=== PATIENT | male | born 1955 ===

== ENCOUNTER 2023-04-22 16:13 | Outpatient (AMB) | payer OTHER, SELFPAY ==
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
== END 2023-04-22 16:13 | disposition home or self-care (01) ==
LOC: HO.PMC 16:13
PROVIDERS: PCP Internal Medicine; Visit Provider Internal Medicine
DX: M48.062 Spinal stenosis, lumbar region with neurogenic claudication (principal); M47.816 Spondylosis without myelopathy or radiculopathy, lumbar region; M43.16 Spondylolisthesis, lumbar region
CPT/HCPCS: 99441

== ENCOUNTER → 2023-04-22 16:13 | Outpatient (BNVA) | payer OTHER, SELFPAY | PROVIDERS: PCP Internal Medicine; Visit Provider Internal Medicine ==

== ENCOUNTER 2023-12-05 06:11 | Outpatient (REF) | payer OTHER, SELFPAY ==
--- NOTE | ~2023-12-05 | FL_ITS ---
EXAMINATION: XR FLUOROSCOPY WITH IMAGES CLINICAL INFORMATION: Spondylosis without myelopathy. COMPARISON: None available. TECHNIQUE: Fluoroscopy Supervised By: Dr. Luis Enrique Cantu. Fluoroscopy Time: 0.3 minutes. Cumulative Dose: 4.92 mGy. DAP: 0.47425 Gycm2. Images: 2. FINDINGS: Intraoperative fluoroscopy and spot films were performed during a procedure in the OR. Single needle seen just to the right of midline in the lumbar spine, possibly L3. Level is difficult to ascertain because of marked coning of the radiographs. Contrast is seen in the epidural space. Please correlate with Dr. Luis Enrique Cantu's report for complete details. FL/FL guidance in treatment room IMPRESSION: Intraoperative fluoroscopy and spot films were obtained. Please see Dr. Luis Enrique Cantu's report for complete details.
== END 2023-12-05 06:12 | disposition home or self-care (01) ==
LOC: CF 06:11
PROVIDERS: Visit Provider Internal Medicine
DX: M47.26 Other spondylosis with radiculopathy, lumbar region (principal)
CPT/HCPCS: 62323; J3301; Q9967

== ENCOUNTER 2023-12-05 09:45 | Outpatient (AMB) | payer OTHER, SELFPAY ==
--- NOTE | 2023-12-05 09:58 | A.OFFVIS_ITS ---
Vital Signs 12/05/23 10:42 12/05/23 10:43 Height 5 ft 2 in Weight 153 lb BMI 28.0 BP 114/68 118/62 Blood Pressure Location Lt brachial Lt brachial Position Sitting Sitting Respiration 14 16 Pulse 62 66 Pulse Source Pulse Oximeter Pulse Oximeter Pulse Oximetry (%) 97 99 Oxygen Delivery Method Room Air Room Air Comment Pre-Op Post-Op Intake Visit Reasons: interlaminar lumbar LINDA HPI HPI interlaminar lumbar LINDA: Details: Patient presents for scheduled procedure. Denies any recent cough, cold, infection, fever or other significant changes in medical history since last office visit. Office Procedures Joint Injection/Drain Joint Injection/Drain Details: Interlaminar epidural steroid injection, L3-4, left parasaggital After obtaining written consent, pre-procedure blood pressure and heart rate were stable and recorded in the nursing record. The patient was placed in the prone position. The lumbosacral area was widely prepped with chloraprep and draped in sterile fashion. Fluoroscopic guidance was used to identify the desired interlaminar space and for needle placement. Subcutaneous 0.5% lidocaine was used to anesthetize the skin overlying the target. A 20-gauge Mejia needle was advanced to the epidural space using loss of resistance to contrast technique under fluoroscopic AP and contralateral oblique views. There was no evidence of heme or CSF and no paresthesias were elicited with needle placement. Confirmation of epidural needle placement was performed with 1cc of omnipaque 180. Next 3 ml 0.5% lidocaine mixed with 80 mg triamcinilone was administered epidurally with no pain elicited on injection. The needle was removed, skin cleansed and a sterile bandage was applied. The n eedle was then replaced in the L4-5 interlaminar space and advanced to the ventral interlaminar line in the left parasagittal position under contralateral oblique fluoroscopy. Aspiration was then attempted for the interlaminar cyst and 0.5 mL of cloudy fluid was aspirated. The needle was then removed. The patient tolerated the procedure well and no complications were encountered. Following the procedure the patient's vital signs were stable. The patient was discharged home in good condition with post-procedural instructions. Time Out: Immediately prior to the procedure, the following was verbally confirmed that there is a signed consent form and that the correct patient, planned procedure, site and side are consistent with documentation and that necessary equipment and/or blood products are available prior to the start of the case. Complications: none EBL: <2 cc Coding 75618 - Caudal/Lumbar Epidural/Interlaminar with fluoroscopy Procedure code (CPT) selection complete Assessment & Plan Assessment & Plan (1) Lumbar radiculitis: Code(s): M54.16 - Radiculopathy, lumbar region Category: Medical Plan Patient is status post left parasagittal interlaminar L3-4 LINDA. Patient tolerated procedure well and was discharged home in stable condition with discharge instructions. All questions were answered. We will follow-up via telephone or in clinic to assess response to therapy. A follow-up appointment was made during today's visit. Orders: Orders FL guidance in treatment room Today M47.816 - Spondylosis without myelopathy or radiculopathy, lumbar region Coding Level of Care Code Procedure Only Diagnoses Lumbar radiculitis M54.16 CPT Codes Coding - Joint 11: 00952 - Caudal/Lumbar Epidural/Interlaminar with fluoroscopy ([id number])
[2023-12-05 10:42] VITALS: BP 114/68; PULSE 62; RESP 14; O2SAT 97; BMI 28.0
[2023-12-05 10:43] VITALS: BP 118/62; PULSE 66; RESP 16; O2SAT 99
== END 2023-12-05 10:28 | disposition home or self-care (01) ==
LOC: HO.PMCPRC 09:45
PROVIDERS: PCP Internal Medicine; Visit Provider Internal Medicine
DX: M54.16 Radiculopathy, lumbar region (principal)
CPT/HCPCS: 62323

== ENCOUNTER 2024-05-14 08:05 | Outpatient (REF) | payer MEDICARE, OTHER, SELFPAY | END 2024-05-14 08:06 | disposition home or self-care (01) | LOC: CF 08:05 | PROVIDERS: Visit Provider Internal Medicine | DX: M54.16 Radiculopathy, lumbar region (principal) | CPT/HCPCS: 62323; J1100; J2003; J3301; Q9967 ==

== ENCOUNTER 2024-05-14 11:34 | Outpatient (AMB) | payer MEDICARE, OTHER, SELFPAY ==
[2024-05-14 12:15] VITALS: BP 112/65; PULSE 64; O2SAT 98
--- NOTE | 2024-05-14 12:15 | MHC.OFFVIS ---
Vital Signs 05/14/24 12:15 05/14/24 12:45 BP 112/65 110/69 Blood Pressure Location Lt brachial Lt brachial Position Sitting Sitting Pulse 64 61 Pulse Source Pulse Oximeter Pulse Oximeter Pulse Oximetry (%) 98 98 Oxygen Delivery Method Room Air Room Air Intake Visit Reasons: lumbar interlaminar LINDA HPI HPI lumbar interlaminar LINDA: Details: Patient presents for scheduled procedure. Denies any recent cough, cold, infection, fever or other significant changes in medical history since last office visit. Physical Exam Vital Signs: Last Vital Signs Pulse 61 05/14/24 12:45 BP 110/69 05/14/24 12:45 Pulse Ox 98 05/14/24 12:45 Oxygen Delivery Method Room Air 05/14/24 12:45 Office Procedures AMB Joint Injection/Aspiration Joint Injection/Aspiration Details: Interlaminar epidural steroid injection, L3-4, left parasaggital After obtaining written consent, pre-procedure blood pressure and heart rate were stable and recorded in the nursing record. The patient was placed in the prone position. The lumbar area was widely prepped with chloraprep and draped in sterile fashion. Fluoroscopic guidance was used to identify the desired interlaminar space and for needle placement. Subcutaneous 0.5% lidocaine was used to anesthetize the skin overlying the target. A 20-gauge Mejia needle was advanced to the epidural space using loss of resistance to contrast technique under fluoroscopic AP and contralateral oblique views. There was no evidence of heme or CSF and no paresthesias were elicited with needle placement. Confirmation of epidural needle placement was performed with 1cc of omnipaque 180. Next 3 ml 0.5% lidocaine mixed with 80 mg triamcinilone was administered epidurally with no pain elicited on injection. The needle tract tubing was then cleared with 1 ml of 0.5% lidocaine. The needle was removed, skin cleansed and a sterile bandage was applied. The patient tolerated the procedure well and no complications were encountered. Following the procedure the patient's vital signs were stable. The patient was discharged home in good condition with post-procedural instructions. Time Out: Immediately prior to the procedure, the following was verbally confirmed that there is a signed consent form and that the correct patient, planned procedure, site and side are consistent with documentation and that necessary equipment and/or blood products are available prior to the start of the case. Complications: none EBL: <2 cc Coding 08622 - Caudal/Lumbar Epidural/Interlaminar with fluoroscopy Procedure code (CPT) selection complete Assessment & Plan Assessment & Plan (1) Lumbar radiculitis: Code(s): M54.16 - Radiculopathy, lumbar region Category: Medical Plan Patient is status post left parasagittal interlaminar L3-4 LINDA. Patient tolerated procedure well and was discharged home in stable condition with discharge instructions. All questions were answered. We will follow-up via telephone or in clinic to assess response to therapy. A follow-up appointment was made during today's visit. Orders: Orders FL guidance in treatment room 05/14/24 M54.16 - Radiculopathy, lumbar region Coding Level of Care Code Procedure Only Diagnoses Lumbar radiculitis M54.16 CPT Codes Coding - Joint 11: 47868 - Caudal/Lumbar Epidural/Interlaminar with fluoroscopy ([id number])
[2024-05-14 12:45] VITALS: BP 110/69; PULSE 61; O2SAT 98
== END 2024-05-14 13:09 | disposition home or self-care (01) ==
LOC: HO.PMCPRC 11:34
PROVIDERS: PCP Internal Medicine; Visit Provider Internal Medicine
DX: M54.16 Radiculopathy, lumbar region (principal)
CPT/HCPCS: 62323

== ENCOUNTER 2024-08-21 11:15 | Outpatient (AMB) | payer MEDICARE, OTHER, SELFPAY ==
--- NOTE | 2024-08-21 11:15 | A.OFFVIS_ITS ---
Intake Visit Reasons: follow up HPI HPI follow up: Details: The patient is a 69-year-old male presenting with increased severe left leg radiculopathy and cervicalgia. The patient has a notable history of previously diagnosed lumbar spinal stenosis and lumbar spondylolisthesis with chronic low back pain. Post recent travel abroad, the patient experienced severe left leg radiculopathy rendering him unable to ambulate and has resulted in his being wheelchair-bound, leading to short-term disability. The lumbar symptoms have worsened over time, presenting with increased numbness, cramping, and pain. The patient denies any bladder or bowel dysfunction. Cervicalgia, including pain radiating to shoulders and arms, with cramping as a new issue, arises alongside chronicity in bilateral shoulder impingement syndrome, notwithstanding prior surgical intervention. Increasing bilateral shoulder pain has impaired his sleep routine, necessitating adaptation to a supine sleeping position in pursuit of symptom relief. Utilization of new imaging for lumbar and cervical pain interpretation is planned. Pain Description - Onset: Recently increased post-travel. - Quality and Character: Debilitating left leg radiculopathy, severe in nature; neck pain with radiation. - Primary Location: Lumbar region and cervical spine. - Areas of Radiation: Left leg, shoulders, and arms. - Exacerbating Factors: Specific neck movements; ambulation; prolonged sitting. - Relieving Factors: Attempts at adapting sleep position. - Impact: Wheelchair-bound due to severe leg pain; difficulty sleeping. Physical Exam - Omitted due to telephone visit Pain Management - Affect: Significant impact on daily activities and sleep routine. - Analgesia: Severity increase observed post recent events; interest in MRI and potential therapy. - Adverse Effects: Difficulty in habitual sleeping rotation. - Activities of Daily Living: Noted wheelchair-bound state post travel; impact on sleep. - Aberrant Drug Related Behaviors: None reported. Telehealth Telehealth Telehealth Platform: Telephone Location of provider rendering services: practice address Location of patient: address on file Patient Identification confirmed using: Name, : Yes Telehealth method: voice only Patient verbally consented to treatment: Yes Patient verbally consented to billing insurance company: Yes Patient informed of any privacy concerns related to visit: Yes Minutes spent on Phone/Video with Pt.: 13 Assessment & Plan Assessment & Plan (1) Spinal stenosis, lumbar region with neurogenic claudication: Code(s): M48.062 - Spinal stenosis, lumbar region with neurogenic claudication Category: Medical (2) Spondylolisthesis, lumbar region: Code(s): M43.16 - Spondylolisthesis, lumbar region Category: Medical (3) Lumbar radiculitis: Code(s): M54.16 - Radiculopathy, lumbar region Category: Medical (4) Cervical radicular pain: Code(s): M54.12 - Radiculopathy, cervical region Category: Medical (5) Dysfunction of rotator cuff of both shoulders: Code(s): M67.911 - Unspecified disorder of synovium and tendon, right shoulder; M67.912 - Unspecified disorder of synovium and tendon, left shoulder Category: Medical Plan Given the worsening severity of the patient?s symptoms in the lumbar and cervical regions, MRI evaluations are crucial for accurate reevaluation and management. The patient is recommended for surgical evaluation, warranting possibilities of decompression, especially for the exacerbated lumbar condition. Existing nighttime discomfort may benefit from the exploration of alternative pillow supports. Introduction to physical therapy was suggested, albeit potential participation limitations due to severe symptoms exist. Proper follow- up contingent on MRI results will ensure adaptive management based on findings. At this time, I recommend continuing short term leave from work while we undert livia gentle rehabilition via physical, have him undergo MR imaging and return for follow up discussion to assess suitability for surgical or interventional management. Patient was informed and verbally consented to the use of an ambient scribe for clinic note documentation during this visit. Discussion Notes In the patient-provider discussion, MRIs of the lumbar and cervical spine were advocated to reassess worsening symptoms and generate an accurate diagnosis. We conversed about methods of symptom mitigation, including changes in sleep posture and pillow use. Indication for surgical assessment concluded during the discussion based on symptom presentation and history. We prepared to re-evaluate therapy?s viability post-diagnostic imaging results. The patient understood the management discourse and agreed to proceed with outlined evaluations and eventual follow-up for final treatment directives contingent on imaging outcomes. Patient Instructions - Undergo MRI scans of the shoulders, lumbar and cervical spine. - Explore different pillow types for improved neck support. - Attempt to sleep on your back, utilizing supportive pillows. - Follow up after MRI results are available. - Trial of physical therapy while waiting on imaging outcomes. Orders: Orders PT Evaluation and Treatment 08/21/24 M43.16 - Spondylolisthesis, lumbar region, M48.062 - Spinal stenosis, lumbar region with neurogenic claudication, M54.16 - Radiculopathy, lumbar region Coding Level of Care Code Tele Est Pt Level 3 (68885) Diagnoses Spinal stenosis, lumbar region with neurogenic claudication M48.062 Spondylolisthesis, lumbar region M43.16 Lumbar radiculitis M54.16 Cervical radicular pain M54.12 Dysfunction of rotator cuff of both shoulders M67.911; M67.912
--- OUTSIDE RECORDS SUMMARY | 2024-08-21 13:16 | XMS_ITS ---
Author Organization [facility] Address [phone] [facility] [place] [address] Care Team Providers Care Mohel Name Role Phone Manoj, Ejsue Holley MD Primary Care Provider Self-Referred, Patient Unavailable Unavailab Isaak Florian MD, BONNIE Unavailable [phone] Kyle Onofre CLINICAL SOCIOLOGIST Unavailable [phone] Active Problems Problem Noted Date Diagnosed Date Diabetic nephropathy associa yoko with type 2 diabetes mellitus 02/01/2024 Coronary artery disease 01/01/2024 Overview (01/01/2024): by CT. Abdominal actinomycosis 01/01/2024 Degeneration of intervertebral disc of lumbar re gion 01/01/2024 Degenerative lumbar spinal stenosis 01/01/2024 Diabetes mellitus 01/01/2024 Erectile dysfunction of organic origin Essential hypertension 01/01/2024 H/O coronary angiogram 01/01/2024 Hyperlipidemia with target l ow density lipoprotein (LDL) cholesterol less than 70 mg/dL 01/01/2024 Hypogonadism male 01/01/2024 Left lower lobe pulmonary nodule 01/01/2024 Sacrococcygeal disorders, not elsewhere classifi ed 01/01/2024 Nuclear senile cataract 01/01/2024 Proctalgia fugax 01/01/2024 Recurrent major depression 01/01/2024 Seasonal allergies 01/01/2024 Type 2 diabetes mellitus wit hout complication, without long-term current use of insulin 01/01/2024 Vitamin D deficiency 01/01/2024 Prostate cancer 04/29/2023 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 Past Plans No past plan information found. Radiation Treatments * Plan Last Treated On Elapsed Days Fractions Treated Prescribed Fraction Dose Prescribed Total Dose A1_IM125^IMRT Prostate RT Intent Revision 11 11/13/2023 9 5 of 5 800 cGy 4,000 cGy Reference Point Last Treated On Elapsed Days Session Dose Total Dose A1_Prostate 11/13/2023 9 800 cGy 4,000 cGy A_PELVIS 11/13/2023 9 800 cGy 4,000 cGy Resolved Problems Problem Noted Date Diagnosed Date Resolved Date Acute sinusitis 01/01/2024 01/01/2024 Benign prostatic hyperplasia without lower urinary tract symptoms 01/01/2024 01/01/2024 BPH with obstruction/lower u rinary tract symptoms 01/01/2024 01/01/2024 Displaced avulsion fracture of left ilium, subsequent encounter for fracture with delayed healing 01/01/2024 01/01/2024 Elevated PSA, less than 10 ng/ml 01/01/2024 01/01/2024 Microscopic hematuria 01/01/20242023 Myopathy 01/01/2024 01/01/2024 Thoracic vertebral fracture 01/01/2024 01/01/2024 H. pylori infection 11/23/2019 01/01/20 24
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
--- OUTSIDE RECORDS SUMMARY | 2024-08-21 13:16 | XMS_ITS | Clinical Summary ---
Author Organization [facility] lin Address [address] [facility] [place] [address] Care Team Providers Care Counter Installer Name Role Phone Unavailable Primary Care Provider Unavailabl e Social History Tobacco Use Types Packs/Day Years Used Date Smoking Tobacco: Never Assessed Sex and Gender Information Value Date Recorded Sex Assigned at Not on file Legal Sex Male 7:25 PM EDT Gender Identity Not on file Sexual Orientation Not on file Plan of Treatment Health Maintenance Due Date Last Done Comments Colorectal Cancer: COLONOSCO PY Screening every 10 yrs (or Modifier) 1955 Depression: Screening Annual ly using PHQ-2/9 in Adults 18 yrs or above (or HM Modifier)([facility]) 01/05/1972 Hepatitis C Virus Infection in Adolescents and Adults: Screening (or Modifier) ([facility]) 01/05/1972 SDAL Screening Reminder: Martha stock for all adults ([facility]) 01/05/1972 Tobacco Smoking Cessation: i n Adults excluding Women: Behavioral and Pharmacotherapy Interventions ([facility]) 01/05/1972 DTaP/Tdap/Td Vaccines ([facility]) (1 - Tdap) 1973 Lipid Screening: Every 5 yrs for Men aged 35+ (or HM Modifier) ([facility]) 1990 Colorectal Cancer: FLEXIBLE SIGMOIDOSCOPY Screening every 5 yrs 1999 Colorectal Cancer: Fecal Imm unochemical Test (FIT) Annually [facility] 1999 Colorectal Cancer: High-sens itivity gFOBT Screening Annually [facility] 1999 Colorectal Cancer:CT Colonog madelin Screening every 5 yrs 1999 Zoster/Shingles Vaccine Seri es Screening: Adults aged 18+ yrs (or HM Modifiers)([facility]) (1 of 2) 01/05/2004 Pneumococcal Vaccination Scr eening: Patients 65+ yrs of age ([facility]) (1 of 1 - PCV) 2019 Colorectal Cancer Screening 45 -75 Yrs (or HM Modifier) 08/17/2022 Colorectal Cancer: Stool Col oguard Screening every 3 yrs 08/17/2022 08/17/2019 Flu Vaccination: Ages 65+: Y early High Dose Recommended (or Modifier)([facility]) 01/23/2024 COVID-19 Vaccine Screening: Initial Series and Booster Status ([facility]) ( - 2023- season) 2024 RSV Vaccines (1 - 1-dose 75+ series) 2029 Medical Devices Not on file Insurance
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
--- OUTSIDE RECORDS SUMMARY | 2024-08-21 13:16 | XMS_ITS | Clinical Summary ---
Author Organization [facility] Address [phone] [facility] [place] [address] Care Team Providers Care Employment Services Director Name Role Phone ManojEj basilio Kishan GAGNON Primary Care Provider Self-Referred, Patient Unavailable Unavailab Isaak Florian MD, BONNIE Unavailable [phone] Kyle Onofre STACK MATCHER Unavailable [phone] Allergies Active Allergy Reactions Criticality Noted Date Comments Atorvastatin Myalgia 01/01/2024 Itraconazole Anaphylaxis,Hives,Unknown High 03/29/20 23 Lisinopril Cough 01/01/2024 Medications Medication Sig Dispensed Refills Start Date End Date Status metFORMIN (GLUCOPHAGE) 1000 MG tablet Take 1,000 mg by mouth 2 (two) times a day with meals. Active losartan (COZAAR) 50 MG tablet Take 50 mg by mouth daily. Active aspirin 81 MG EC tablet Take 81 mg by mouth daily. Active sildenafiL (VIAGRA) 100 mg tablet Take 100 mg by mouth daily as needed for erectile dysfunction. Active ALPRAZolam (XANAX) 0.5 MG tablet TAKE 1 TABLET BY MOUTH THREE TIMES A DAY FOR 7 DAYS NEEDED FOR ANXIETY AND PANIC ATTACKS 11/07/2023 Active FREESTYLE BHARTI 3 SENSOR Teresa SENSORS DX: DM TYPE 2 E11.9 CHECK SUGARS 11/26/2022 Active CEQUA 0.09 % suspension 11/19/2023 Active EPINEPHrine (EPIPEN) 0.3 mg/0.3 mL auto-injector as directed Injection as needed for 30 days Active eszopiclone (LUNESTA) 3 mg tablet TAKE 1 TABLET BY MOUTH AT BEDTIME 30 DAYS NEEDED INSOMNIA 11/11/2023 Active ketoconazole 2 % cream 1 APPLICATION TOPICALLY 2 TIMES A DAY FOR 2-4 WEEKS AT A TIME. 11/02/2023 Active XDEMVY 0.25 % Drop INSTILL 1 DROP INTO EACH EYE TWICE A DAY FOR 6 WEEKS 11/11/2023 Active MIEBO 100 % Drop 11/05/2023 Active tadalafiL (CIALIS) 5 MG tablet 09/23/2023 Active triamcinolone acetonide 0.025 % cream PLEASE SEE ATTACHED FOR DETAILED DIRECTIONS 11/01/2023 Active FARXIGA 10 mg tablet Take 1 tablet by mouth daily. Active REPATHA SYRINGE 140 mg/mL subcutaneous syringe INJECT 140 MG SUBCUTANEOUS INFUSION EVERY 14 DAYS,X90 DAYS 12/16/2023 Active tamsulosin (FLOMAX) 0.4 mg Cap Take 0.8 mg by mouth. 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 pylori infection 11/23/2019 01/01/20 24 Encounters Date Type Department Care Team Description 05/27/2024 1:00 PM EST - 05/27/2024 11:59 PM EST Hospital Encounter Department of Radiation Oncology [address] [place] [address] Kyle Onofre, GAYLE Discharge Disposition: Home or Self Care 05/27/2024 Orders Only Department of Radiation Oncology [address] [place] [address] Kyle Onofre NP from Last 3 Months Family History Medical History Relation Comments Prostate cancer Father Relation Status Comments Father Social History Tobacco Use Types Packs/Day Years Used Date Smoking Tobacco: Never Smokeless Tobacco: Never Tobacco Cessation:Counseling Given: Not Answered Child or Family Care Answer Date Record [...] your housing situation today? I have sadie logan 08/29/2023 How many times have you move [...] Orientation Straight 03/22/2023 5: 43 PM EDT Last Filed Vital Signs Vital Sign Reading Time Taken Comments Blood Pressure 98/55 10/21/2023 11:23 AM EDT Pulse 72 10/21/2023 11:23 AM EDT Temperature - - Respiratory Rate - - Oxygen Saturation - - Inhaled Oxygen Concentration - - Weight 71.7 kg (158 lb) 10/21/2023 9:35 AM EDT Height 165 cm (5' 4.96 ) 10/21/2023 9:35 AM EDT Body Mass Index 26.32 10/21/2023 9:35 AM EDT Plan of Treatment Upcoming Encounters Date Type Department Care Team ([facility] st Contact Info) Description 10/28/2024 3:00 PM EDT Appointment Department of Radiation Oncology [address] [address] Kyle Onofre, STACK MATCHER [address] [place], [place] [address] [place] [address] [email or web address] Health Maintenance Due Date Last Done Comments CREATININE LEVEL 1954 HEMOGLOBIN A1C 1954 POTASSIUM LEVEL 1954 DEPRESSION SCREENING 1966 HEPATITIS B SCREENING 01/05/1972 HEPATITIS C SCREENING 01/05/1972 LIPID PANEL 01/05/1972 PNEUMOCOCCAL VACCINES (50+ years) (1 of 2 - PCV) 1973 COLOGUARD 1999 COLONOSCOPY 1999 COLORECTAL CANCER SCREENING 1999 FIT TEST 1999 FOBT 1999 SIGMOIDOSCOPY 1999 VIRTUAL COLONOSCOPY 1999 RSV VACCINE (1 - Risk 60-74 years 1-dose series) 2014 ZOSTER VACCINES (2 of 2) 09/05/2021 07/11/2021 BLOOD PRESSURE 12/14/2023 06/14/2023 DIABETIC EYE EXAM 01/01/2024 INFLUENZA VACCINE (#1) 2024 , 05/08/2022, 05/25/2021 COVID-19 VACCINE ( - season) 2024 05/24/2022, 10/06/2021, 03/31/2021, Additional history exists Adult Td,Tdap Booster 10/07/2031 10/06/2021 SMOKING STATUS SCREENING (Once After 26 Yrs) Completed 06/14/2023 HEPATITIS A VACCINES Aged Out No long er eligible based on patient's age to complete this topic HEPATITIS B VACCINES Aged Out No long er eligible based on patient's age to complete this topic HIB VACCINES Aged Out No longer eligi ble based on patient's age to complete this topic MENINGOCOCCAL VACCINES (ACWY) Aged Out No longer eligible based on patient's age to complete this topic Medical Devices Not on file Procedures Procedure Name Priority Date/Time Associated Diagnosis Comments PSA Routine 05/27/2024 1:23 PM EST from Last 3 Months Results * PSA (05/27/2024 1:23 PM EST) Kyle Onofre NP LAB BLOOD ORDERABL ES from Last 3 Months Care Teams Employment Services Director Relationship Specialty Start Date End Date Ej Aranda MD [address] [facility] [address] [place] [address] PCP - General Internal Medicine 08/13/23 Self-Referred, Patient 08/13/23 Isaak Contreras MD, BONNIE [address] [place] [address] [email or web address] Radiation Oncology 08/13/23 Kyle Onofre, STACK MATCHER [address] [place] [address] [email or web address] Nurse Practitioner Radiation Oncology 01/01/24 Additional Source Comments The information contained in this document represents components of the legal health record. It is not the complete legal health record.[facility]
--- OUTSIDE RECORDS SUMMARY | 2024-08-21 13:17 | XMS_ITS | Encounter Summary ---
Author Organization [facility] Address [phone] [facility] [address] [place] [address] Care Team Providers Care Golf Course Equipment Operator Name Role Phone ManojTavonsue Holley MD Primary Care Provider [phone] Self-Referred, Patient Unavailable Unavailab Isaak Florian MD, BONNIE Unavailable [phone] Kyle Onofre DIRECTOR OF STRATEGIC PROGRAMS Unavailable [phone] Encounter Details Date Type Department Care Team (Late st Contact Info) Description 01/01/2024 Documentation Department of Radiation Oncology [address] [address] Heidi Ken, RN [address] [place] [address] [email or web address] Social History Tobacco Use Types Packs/Day Years [...] Upcoming Encounters Date Type Department Care Team ([facility] st Contact Info) Description 10/28/2024 3:00 PM EDT Appointment Department of Radiation Oncology [address] [place] [address] Kyle Onofre, GAYLE [address] [place] [address] [email or web address] documented as of this encounter Visit Diagnoses Not on filedocumented in this encounter Care Teams Golf Course Equipment Operator Relationship Specialty Start Date End Date Ej Aranda MD [address] [facility] [address] [place] [address] PCP - General Internal Medicine 08/13/23 Self-Referred, Patient 08/13/23 Isaak Contreras MD, BONNIE [address] [place] [address] [email or web address] Radiation Oncology 08/13/23 Kyle Onofre NP [address] [place] [address] [email or web address] Nurse Practitioner Radiation Oncology 01/01/24 documented as of this encounter Additional Source Comments The information contained in this document represents components of the legal health record. It is not the complete legal health record.[facility]
--- OUTSIDE RECORDS SUMMARY | 2024-08-21 13:17 | XMS_ITS | Encounter Summary ---
Author Organization [facility] Address [phone] [place] [address] Care Team Providers Care Real Estate Leasing Manager Name Role Phone ManojTavonsue Holley MD Primary Care Provider [phone] Self-Referred, Patient Unavailable Unavailab Isaak Florian MD, BONNIE Unavailable [phone] Kyle Onofre NON EMERGENCY SERVICES AMBULANCE DRIVER Unavailable [phone] Encounter Details Date Type Department Care Team (Late st Contact Info) Description 01/29/2024 Documentation Department of Radiation Oncology [address] [address] Heidi Ken, RN [address] [place] [address] [email or web address] Social History Tobacco Use Types Packs/Day Years [...] Upcoming Encounters Date Type Department Care Team ([facility] st Contact Info) Description 10/28/2024 3:00 PM EDT Appointment Department of Radiation Oncology [address] [place] [address] Kyle Onofre, GAYLE [address] [place] [address] [email or web address] documented as of this encounter Visit Diagnoses Not on filedocumented in this encounter Care Teams Real Estate Leasing Manager Relationship Specialty Start Date End Date Ej Aranda MD [address] [facility] [address] [place] [address] PCP - General Internal Medicine 08/13/23 Self-Referred, Patient 08/13/23 Isaak Contreras MD, BONNIE [address] [place] [address] [email or web address] Radiation Oncology 08/13/23 Kyle Onofre NP [address] [place] [address] [email or web address] Nurse Practitioner Radiation Oncology 01/01/24 documented as of this encounter Additional Source Comments The information contained in this document represents components of the legal health record. It is not the complete legal health record.[facility]
--- OUTSIDE RECORDS SUMMARY | 2024-08-21 13:17 | XMS_ITS | Encounter Summary ---
Author Organization [facility] Address [phone] Critical access [place] [address] Care Team Providers Care Hydraulic Auto Jack Mechanic Name Role Phone ManojTavonsue Holley MD Primary Care Provider [phone] Self-Referred, Patient Unavailable Unavailab Isaak Florian MD, BONNIE Unavailable [phone] Kyle Onofre ACCOUNTING LECTURER Unavailable [phone] Encounter Details Date Type Department Care Team (Late st Contact Info) Description 11/06/2023 Documentation Department of Radiation Oncology [address] [address] Heidi Ken, RN [address] [place] [address] [email or web address] Social History Tobacco Use Types Packs/Day Years [...] PM EDT documented as of this encounter Progress Notes * Heidi Ken RN - 11/06/2023 11:59 PM EDT Participant, Kamron Haley, was consented to trial [facility] 22-687 on 10/23/2023. The research was fully explained to the participant and was given time to read and review the consent form. The participant acknowledged full comprehension of the risks and benefits of the study. Theparticipant had the opportunity to ask questions, and all his questions were answered. The participant was given a copy of the signed consent form. All study related procedures were performed after th e participant signed the consent form. 22-687 - Daily Adaptive Stereotactic Body Radiation Therapy for Prostate Cancer with Urethral Sparing: A Prospective Trial Using an Individualized Approach to Reduce Urinary Toxicity (ARTIA-Prostate) AE's possibly, probably, or definitely related to SBRT to prostate will be followed with particularinterest related to AE's listed below. Adverse Events needed: Baseline, 1X during RT (ideally after 3rd, 4th or 5th fraction), 6 wks post tx(+/- 2 wks) 90 days post tx(+/- 2 wks) 6, 12, 18, 24, 36, 48, 60 month post treatment (-/- 4 wks) GI AE's: Toxicity Grade Attribution Start Stop Expected Comments NCS Abdominal pain 0 Bowel Obstruction 0 Colitis 0 Constipation 0 Diarrhea 0 Fecal Incontinence 0 Nausea 0 Pelvic Pain 0 Proctitis 0 Rectal Hemorrhage 0 Rectal Pain 0 Vomiting 0 AE's Toxicity Grade Attribution Start Stop Expected Comments NCS Bladder Spasm 0 Cystitis 0 Hematuria 0 Urinary Frequency 2 Baseline on flomax 0.8mg and cialis 5mg Urinary incontinence 0 Urinary Retention 0 Urinary Tract Obstruction 1 Baseline Urinary tract pain 0 Urinary Urgency 1 Baseline Heidi THOMPSON, RN Isaak Contreras MD documented in this encounter Plan of Treatment Upcoming Encounters Date Type Department Care Team (Late st Contact Info) Description 10/28/2024 3:00 PM EDT Appointment Department of Radiation Oncology [address] [place] [address] Kyle Onofre, ACCOUNTING LECTURER [address] [place] [address] [email or web address] documented as of this encounter Visit Diagnoses Not on filedocumented in this encounter Care Teams Hydraulic Auto Jack Mechanic Relationship Specialty Start Date End Date Ej Aranda MD [address] [facility] [address] [place] [address] PCP - General Internal Medicine 08/13/23 Self-Referred, Patient 08/13/23 Isaak Contreras MD, BONNIE [address] [place] [address] [email or web address] Radiation Oncology 08/13/23 Kyle Onofre NP [address] [place] [address] [email or web address] Nurse Practitioner Radiation Oncology 01/01/24 documented as of this encounter Additional Source Comments The information contained in this document represents components of the legal health record. It is not the complete legal health record.[facility]
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
--- OUTSIDE RECORDS SUMMARY | 2024-08-21 13:17 | XMS_ITS | Clinical Summary ---
Author Organization [facility] Address [address] [place] [address] Care Team Providers Care Qa Automation Developer Name Role Phone Unknown, Primary Care Provider Unavailabl e Social History Tobacco Use Types Packs/Day Years Used Date Smoking Tobacco: Never Assessed Sex and Gender Information Value Date Recorded Sex Assigned at Not on file Gender Identity Not on file Sexual Orientation Not on file Job Start Date Occupation Industry Not on file Not on file Not on file Plan of Treatment Health Maintenance Due Date Last Done Comments Hepatitis C Screening 1954 COVID-19 Vaccine (#1) 1954 Depression Screening 1966 Preventative Health Evaluation 01/05/1972 DTap / Tdap / Td (1 - Tdap) 1973 Colon Cancer Screening (Colonoscopy) 1999 Shingrix-Zoster Vaccine (1 of 2) 01/05/2004 Fall Risk Assessment 2019 Pneumococcal Vaccine (1 of 1 - PCV) 2019 Influenza Vaccine (#1) 2024 RSV Adult > 60+ Yrs or Pregn ant (1 - 1-dose 75+ series) 2029 Hepatitis B Vaccines Aged Out No long er eligible based on patient's age to complete this topic RSV Ped < 20 months Aged Out No longe r eligible based on patient's age to complete this topic Care Teams Qa Automation Developer Relationship Specialty Start Date End Date Unknown, PCP - General 06/11/23
== END 2024-08-21 11:16 | disposition home or self-care (01) ==
LOC: HO.PMC 11:15
PROVIDERS: PCP Internal Medicine; Visit Provider Internal Medicine
DX: M48.062 Spinal stenosis, lumbar region with neurogenic claudication (principal); M43.16 Spondylolisthesis, lumbar region; M54.16 Radiculopathy, lumbar region; M54.12 Radiculopathy, cervical region; M67.911 Unspecified disorder of synovium and tendon, right shoulder; M67.912 Unspecified disorder of synovium and tendon, left shoulder
CPT/HCPCS: 99213

== ENCOUNTER 2025-02-04 09:46 | Outpatient (REF) | payer MEDICARE, OTHER, SELFPAY ==
--- OUTSIDE RECORDS SUMMARY | 2025-02-03 23:59 | XMS_ITS | Continuity of Care Document ---
Author Organization [facility] Address [address] [place] [address]- Care Team Providers Care Senior Web Analyst Name Role Phone Manoj GAGNON, Ej W Primary Care Physician Encounter [facility] Date(s): 01/04/25 - 02/03/25 [facility] [address] [place] [id number] Encounter Type: Triage Allergies, Adverse Reactions, Alerts Substance Criticality Severity Reaction Reaction Severity Status codeine 1 Active Sporanox anaphylaxis Active 1Generally feels unwell, mildly lightheaded. He is uncertain about other opioids Immunizations Given and Recorded Vaccine Date Status Refusal Reason influenza virus vaccine, inactivated 05/10/23 Cisco rded influenza virus vaccine, inactivated 05/08/22 Cisco rded influenza virus vaccine, inactivated 05/25/21 Cisco rded [id number] 12y+ bivalent booster vax 05/24/22 Recorded tetanus-diphtheria toxoids (Td) 10/06/21 Recorded SARS-CoV-2 mRNA (jpsmtfu-cwbz-yrsmu) vax 10/06/21 Recorded zoster vaccine, inactivated 07/11/21 Recorded SARS-CoV-2 (COVID-19) mRNA BNT-162b2 vac 03/31/21 Recorded SARS-CoV-2 (COVID-19) mRNA BNT-162b2 vac 07/11/20 Recorded SARS-CoV-2 (COVID-19) mRNA BNT-162b2 vac 06/20/20 Recorded Meningococcal Conjugate Vaccine 05/20/17 Given Medications acetaminophen-HYDROcodone 325 mg-5 mg oral tablet 1 tablet, By Mouth, Every 12 hours, PRN for severe pain, for 14 days, DO NOT TAKE MORE THAN TWICE ADAY. WATCH OUT FOR DROWSINESS, CONFUSION, SLEEPINESS. DO NOT DRIVE AFTER TAKING THE MEDICATION. IN CASE OF ANY SIDE EFFECTS NOTIFY YOUR PCP., # 28 tablet, 0 Refills, Acute 02/16/25 8:14:00 PM EDT, 02/02/25 8:14:00 PM EDT, Tablet, [facility]/pharmacy #[id number], Partial fill upon patient request if the prescription is for a schedule II opioid drug., 1 tablet By Mouth Every 12 hours,x14 days,PRN:for severe pain,Instr:DO NOT TAKE MORE THAN TWICE A DAY. WATCH OUT FOR DROWSINESS, CONFUSION, SLEEPINESS. DO NOT DRIVE AFTER TAKING THE MEDICATION. IN CASE OF ANY SIDE EFFECTS NOTIFY YOUR PCP., 162.52, cm, 11/12/24 11:59:00 EDT, Height, 78.7, kg, 10/14/24 7:30:00 EDT, Dry Weight Start Date: 02/02/25 Stop Date: 02/16/25 Status: Ordered Quantity: 28.0 Unit: tablet Repeat number: 1 aspirin 81 mg oral capsule 1 capsule = 81 mg, By Mouth, Daily, do not exceed 48 capsules in 24 hours, # 14 capsule, 0 Refills,Maintenance, 10/17/24 9:00:00 AM EDT, Capsule, [facility], Partial fill upon patient request if the prescription is for a schedule II opioid drug., 162.52, cm, 10/14/24 7:30:00 EDT, Height, 78.7, kg, 10/14/24 7:30:00 EDT, Dry Weight Start Date: 10/17/24 Stop Date: 10/31/24 Status: Ordered Quantity: 14.0 Unit: capsule Repeat number: 1 Basaglar KwikPen 100 units/mL subcutaneous solution = 10 units, Subcutaneous Injection, Daily at bedtime, # 15 mL, 5 Refills, Maintenance, 04/17/24 12:19:00 PM EDT, Solution, [facility]/pharmacy #[id number], Partial fill upon patient request if the prescription isfor a schedule II opioid drug., 163, cm, 04/02/24 12:42:00 EDT, Height, 75.9, kg, 02/02/24 18:12:00EDT, Dry Weight Start Date: 04/17/24 Stop Date: 10/14/24 Status: Ordered Quantity: 15.0 Unit: mL Repeat number: 6 Cequa 0.09% ophthalmic solution 1 drops, Eyes, Both, Every 12 hours, 0 Refills, Maintenance, 04/02/24 12:50:00 PM EDT, Partial fillupon patient request if the prescription is for a schedule II opioid drug. Start Date: 04/02/24 Status: Ordered Repeat number: 1 Colace sodium 100 mg oral capsule 100 mg, 1, capsule, By Mouth, 2 times a day, # 20 capsule, Refills 0, Tot. 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 Refills 1, Maintenance, Dx: Uncontrolled type 2 diabetes. ICD-10: 11.65, Z79. 4 You can monitor blood sugars 3 times a day that is before breakfast, lunch, dinner., 05/25/24 11:14:00 AM EST, Supply, 163, cm, 04/02/24 12:42:00 EDT, Height, 75.9, kg, 02/02/24 18:12:00 EDT, Dry Weight Start Date: 05/25/24 Status: Ordered Quantity: 1.0 Unit: each Repeat number: 2 DEXCOM G7 SENSORS DEXCOM G7 SENSORS, See Instructions, # 9 each, Refills 3, Tot. Refills 3, Maintenance, Dx: Uncontrolled type 2 diabetes. ICD-10: 11.65, Z79. 4 You can monitor blood sugars 3 times a day that is before breakfast, lunch, dinner. 90 DAYS SCRIPT. 9 BOXES, 07/13/24 9:11:00 AM EST, Supply, 163, cm, 07/09/24 16:52:00 EST, Height, 75.9, kg, 02/02/24 18:12:00 EDT, Dry Weight Start Date: 07/13/24 Status: Ordered Quantity: 9.0 Unit: each Repeat number: 4 EpiPen 2-Job 0.3 mg injectable kit = 0.3 mg, Intramuscular, Once, # 2 each, 1 Refills, Soft Stop, 11/21/24 4:04:00 PM EDT, [facility]/pharmacy#[id number], Partial fill upon patient request if the prescription is for a schedule II opioid drug., 162.52, cm, 11/12/24 11:59:00 EDT, Height, 78.7, kg, 10/14/24 7:30:00 EDT, Dry Weight Start Date: 11/21/24 Status: Ordered Quantity: 2.0 Unit: each Repeat number: 2 Farxiga 10 mg oral tablet 1 tablet = 10 mg, By Mouth, Daily, # 90 tablet, 3 Refills, Maintenance, 09/04/24 6:42:00 AM EDT, Tablet, [facility]/pharmacy #[id number], Partial fill upon patient request if the prescription is for a schedule II opioid drug., 163, cm, 09/03/24 13:08:00 EDT, Height, 75.9, kg, 02/02/24 18:12:00 EDT, Dry Weight Start Date: 09/04/24 Stop Date: 08/30/25 Status: Ordered Quantity: 90.0 Unit: tablet Repeat number: 4 fluticasone 50 mcg/inh nasal spray See Instructions, USE 2 SPRAYS NARES, BOTH 2 TIMES A DAY,X30 DAYS NEEDED NASAL CONGESTION AND POST NASAL DRIPPING, # 16 mL, 1 Refills, Maintenance, 12/21/24 3:04:00 PM EDT, [id number], 30, USE2 SPRAYS NARES, BOTH 2 TIMES A DAY,X30 DAYS NEEDED NASAL CONGESTION AND POST NASAL DRIPPING, 162.52, cm, 11/12/24 11:59:00 EDT, Height, 78.7, kg, 10/14/24 7:30:00 EDT, Dry Weight Start Date: 12/21/24 Status: Ordered Quantity: 16.0 Unit: mL Repeat number: 1 Insulin Lispro KwikPen 100 units/mL injectable solution = 5 units, Subcutaneous Infusion, 3 times a day before meals, <150-no units 151-200-2 units 201-250-4 units 251-300-6 units 301-350-8 units 351-400-10 units >400 - Call PCP. 15 min before or immediately after meals., # 15 mL, 5 Refills, Maintenance, 05/01/24 12:47:00 PM EST, [facility]/pharmacy #[id number], Partial fill upon patient request if the prescription is for a schedule II opioid drug., 163, cm, 04/02/24 12:42:00 EDT, Height, 75.9, kg, 02/02/24 18:12:00 EDT, Dry Weight Start Date: 05/01/24 Stop Date: 10/28/24 Status: Ordered Quantity: 15.0 Unit: mL Repeat number: 6 ketoconazole 2% topical cream 1 application, Topically, 2 times a day, Apply for 2-4 weeks at a time., # 60 Gm, 2 Refills, Maintenance, 11/02/23 10:56:00 AM EDT, Cream, [facility]/pharmacy #[id number], Partial fill upon patient request if the prescription is for a schedule II opioid drug., 1 application Topically 2 times a day,x28 days,Instr:Apply for 2-4 weeks at a time., 163, cm, 08/02/23 14:02:00 EST, Height, 72.3, kg, 08/02/23 14:02:00EST, Dry Weight Start Date: 11/02/23 Stop Date: 01/25/24 Status: Ordered Quantity: 60.0 Unit: g Repeat number: 3 lidocaine 5% topical film 1 patch, Topically, Daily, PRN Pain , Mild, remove after 12 hours, # 13 each, 0 Refills, Maintenance, 01/10/22 9:19:00 AM EDT, Film, Partial fill upon patient request if the prescription is for a schedule II opioid drug. Start Date: 01/10/22 Status: Ordered Quantity: 13.0 Unit: each Repeat number: 1 losartan 50 mg oral tablet 1 tablet, By Mouth, Daily, # 90 tablet, 1 Refills, Maintenance, 01/04/25 9:20:00 AM EDT, [id number], 162.52, cm, 11/12/24 11:59:00 EDT, Height, 78.7, kg, 10/14/24 7:30:00 EDT, Dry Weight Start Date: 01/04/25 Status: Ordered Quantity: 90.0 Unit: tablet Repeat number: 1 metFORMIN 1000 mg oral tablet See Instructions, TAKE 1 TABLET DAILY AT SUPPER, # 90 tablet, 1 Refills, Maintenance, 11/02/23 7:10:00 AM EDT, [facility], 163, cm, 08/02/23 14:02:00 EST, Height, 72.3, kg, 08/02/23 14:02:00 EST, Dry Weight Start Date: 11/02/23 Status: Ordered Quantity: 90.0 Unit: tablet Repeat number: 1 Mounjaro 10 mg/0.5 mL subcutaneous solution = 10 mg, Subcutaneous Injection, Every week, rotate injection sites, # 4 each, 11 Refills, Maintenance, 09/24/24 7:18:00 AM EDT, Solution, [facility]/pharmacy #[id number], Partial fill upon patient request if the prescription is for a schedule II opioid drug., 163, cm, 09/14/24 8:47:00 EDT, Height, 75.9, kg, 02/02/24 18:12:00 EDT, Dry Weight Start Date: 09/24/24 Stop Date: 09/19/25 Status: Ordered Quantity: 4.0 Unit: each Repeat number: 12 nitroglycerin 0.4 mg sublingual tablet 1 tablet = 0.4 mg, Sublingual, Every 5 minutes, PRN for chest pain, # 100 tablet, 3 Refills, Maintenance, 02/06/24 1:46:00 PM EDT, Tablet, [facility]/pharmacy #[id number], Partial fill upon patient request if the prescription is for a schedule II opioid drug., 163, cm, 02/06/24 13:05:00 EDT, Height, 75.9, kg, 02/02/24 18:12:00 EDT, Dry Weight Start Date: 02/06/24 Stop Date: 06/05/24 Status: Ordered Quantity: 100.0 Unit: tablet Repeat number: 4 Indications: Atherosclerotic heart disease of [place] coronary artery without angina pectoris; Pataday Once Daily Relief 0.2% ophthalmic solution 1 drops, Daily, 0 Refills, Maintenance, 11/30/22 12:20:00 PM EDT, Partial fill upon patient request if the prescription is for a schedule II opioid drug. Start Date: 11/30/22 Status: Ordered Repeat number: 1 Repatha SureClick 140 mg/mL subcutaneous solution See Instructions, DIRECTED EVERY 14 DAYS SUBCUTANEOUSLY, # 6 Unknown, 4 Refills, Maintenance, 08/31/24 7:25:00 AM EDT, [id number], 163, cm, 07/09/24 16:52:00 EST, Height, 75.9, kg, 02/02/24 18:12:00 EDT, Dry Weight Start Date: 08/31/24 Status: Ordered Quantity: 6.0 Unit: Unknown Repeat number: 1 silver sulfADIAZINE 1% topical cream 1 application, Topically, 2 times a day, To be applied as needed for quiroz., # 50 Gm, 5 Refills, Maintenance, 12/10/23 8:06:00 PM EDT, Cream, [facility]/pharmacy #[id number], Partial fill upon patient request if the prescription is for a schedule II opioid drug., 1 application Topically 2 times a day,x14 days,Instr:To be applied as needed for quiroz., 163, cm, 08/02/23 14:02:00 EST, Height, 72.3, kg, 08/02/23 14:02:00 EST, Dry Weight Start Date: 12/10/23 Stop Date: 03/03/24 Status: Ordered Quantity: 50.0 Unit: g Repeat number: 6 Stjennifer Sterile Lubricant ophthalmic ointment 1 application, Eyes, Both, Daily at bedtime, PRN for dry eyes, # 3.5 Gm, 0 Refills, Maintenance, 04/02/24 12:50:00 PM EDT, Ointment, Partial fill upon patient request if the prescription is for a schedule II opioid drug. Start Date: 04/02/24 Status: Ordered Quantity: 3.5 Unit: g Repeat number: 1 tamsulosin 0.4 mg oral capsule 2, capsule, By Mouth, Daily at bedtime, X90 DAYS., # 180 capsule, Refills 1, Maintenance, 10/30/24 6:43:00 AM EDT, Route to Pharmacy Electronically, [id number], 162.52, cm, 10/14/24 7:30:00 EDT, Height, 78.7, kg, 10/14/24 7:30:00 EDT, Dry Weight Start Date: 10/30/24 Status: Ordered Quantity: 180.0 Unit: capsule Repeat number: 1 tiZANidine 2 mg oral tablet 2 mg, 1, tablet, By Mouth, 3 times a day, PRN, # 90 tablet, Refills 1, Tot. Refills 1, Maintenance,Severe pain, stiffness of the hip joint and the low back, 02/02/25 8:05:00 PM EDT, Route to PharmacyElectronically, [facility]/pharmacy #[id number], Partial fill upon patient request if the prescription is for a schedule II opioid drug., 162.52, cm, 11/12/24 11:59:00 EDT, Height, 78.7, kg, 10/14/24 7:30:00 EDT,Dry Weight Start Date: 02/02/25 Stop Date: 04/03/25 Status: Ordered Quantity: 90.0 Unit: tablet Repeat number: 2 tiZANidine 2 mg oral tablet 2 mg, 1, tablet, By Mouth, Every 8 hours, PRN, # 15 tablet, Refills 0, Tot. Refills 0, Maintenance,severe pain with spasms, 10/20/24 9:48:00 AM EDT, Route to Pharmacy Electronically, [facility]/pharmacy #[id number], Partial fill upon patient request if the prescription is for a schedule II opioid drug., 162.52,cm, 10/14/24 7:30:00 EDT, Height, 78.7, kg, 10/14/24 7:30:00 EDT, Dry Weight Start Date: 10/20/24 Stop Date: 10/25/24 Status: Ordered Quantity: 15.0 Unit: tablet Repeat number: 1 Ventolin HFA 108 mcg/inh inhalation aerosol with adapter 1-2 inhalation, Inhalation, Every 6 hours, PRN as needed for shortness of breath or wheezing, # 6.7Gm, 1 Refills, Maintenance, 09/03/24 1:44:00 PM EDT, Aerosol, [id number], Partial fill upon patient request if the prescription is for a schedule II opioid drug., 163, cm, 09/03/24 13:08:00 EDT, Height, 75.9, kg, 02/02/24 18:12:00 EDT, Dry Weight Start Date: 09/03/24 Stop Date: 11/02/24 Status: Ordered Quantity: 6.7 Unit: g Repeat number: 2 Problem List Condition Confirmation Course Effective Dates Status Health Status Informant Adenocarcinoma of prostate S/P prostate SBRT without androgen deprivation therapy (11/13/2023 at [facility]) Confirmed Active Adjustment disorder with anxious mood Confirmed Active 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 CAD in [place] artery 1 Confirmed Active Advice or immunization for travel Confirmed Active DDD (degenerative disc disease), lumbar Confirmed Active Thoracic vertebral fracture Confirmed Active Hypercholesteremia Confirmed Active Baastrup's syndrome Confirmed 09/01/07 Active Facial skin lesion, right bahai, hyperkeratotic, mildly pedunculated 2 Confirmed 07/09/24 Active Left lumbar radiculopathy Confirmed Active Hypogonadism male Confirmed Active Left lower lobe pulmonary nodule Confirmed Active Proctalgia fugax Confirmed Active Pituitary macroadenoma Confirmed Active Recurrent major depression Confirmed Active Diabetic nephropathy associated with type 2 diabetes mellitus Confirmed Active Seasonal allergies Confirmed Active Erectile dysfunction of organic origin Confirmed Active Dry eye syndrome, bilateral Confirmed Active Low testosterone level in male Confirmed 07/18/24 Active Type 2 diabetes mellitus Confirmed 1999 Active Vitamin D deficiency Confirmed Active 1by CT. 2Advised to see dermatology. Social History Social History Type Response Smoking Status Former smoker, quit more than 30 days ago; Tobacco use times per day: 2 cigs a day.; Started at age: 20; Stopped at age: 52; entered on: 11/30/22 Sex Sex Representation Male (finding) Patient Care team information Care Team Personnel Name: Yanira Rader MA Position: [facility] Onco RN Member Role: Primary Care Nurse Name: Nanci Mulligan RN Position: [facility] OB RN Member Role: Primary Care Nurse Name: Camille Enciso RN Position: [facility] RN Member Role: Primary Care Nurse Name: Ej Aranda MD Position: [facility] Physician - Primary Care Member Role: PCP Address: [address] [place] [address] [place], [place] [address] Telecom: Care Team Related Persons Name: JOSUE CANTU Name: MARINA CANTU Name: TOMY CANTU Insurance Providers Guarantor name: SIIDRO CANTU Health Plan Information #: 1 Payer: MEDICARE B Payer Identifier: Member Number: [id number] Group Number: Subscriber Identifier: [id number] Relationship to Subscriber: self Coverage Type: NA Coverage Verification Date: NA Telecom: NA Address: Health Plan Information #: 2 Payer: [facility] [employer] Payer Identifier: Member Number: [id number] Group Number: [id number] Subscriber Identifier: [id number] Relationship to Subscriber: self Coverage Type: Commercial Indemnity Coverage Verification Date: Telecom: Address:
--- NOTE | ~2025-02-04 | FL_ITS ---
EXAMINATION: FL GUIDANCE ONLY HISTORY: M25.559 - Pain in unspecified hip COMPARISON: None available. TECHNIQUE: Fluoroscopy time: 0.1 minute. Cumulative Dose: 1.41 mGy. DAP: 0.142 mGym2 Images: 2. FINDINGS: Fluoroscopic spot films of the left hip demonstrate a needle in place and contrast material in the joint space. FL/FL guidance in treatment room IMPRESSION: Fluoroscopy during procedure. Please see procedure report for additional information. Electronically signed by: Raji Roman MD 02/04/2025 03:47 PM EDT
--- OUTSIDE RECORDS SUMMARY | 2025-02-04 10:28 | XMS_ITS | Clinical Summary ---
Author Organization [facility] [address] [facility] Address [address] [facility] [place] [address] Care Team Providers Care Wilton Weaver Name Role Phone Unavailable Primary Care Provider [...] Adults 18 yrs or above (or HM Modifier)([facility]) 01/05/1972 Hepatitis C Virus Infection in Adolescents and Adults: Screening (or Modifier) ([facility]) 01/05/1972 [facility] Screening Reminder: Martha stock for all adults ([facility]) 01/05/1972 Tobacco Smoking Cessation: i n Adults excluding Women: Behavioral and Pharmacotherapy Interventions ([facility]) 01/05/1972 DTaP/Tdap/Td Vaccines ([facility]) (1 - Tdap) 1973 Colorectal Cancer: FLEXIBLE SIGMOIDOSCOPY Screening every 5 yrs 1999 Colorectal Cancer: Fecal Imm unochemical Test (FIT) Annually [facility] 1999 Colorectal Cancer: High-sens itivity gFOBT Screening Annually [facility] 1999 Colorectal Cancer:CT Colonog madelin Screening every 5 yrs 1999 Pneumococcal Vaccination Scr eening: Patients 50+ yrs of age ([facility]) (1 of 1 - PCV) 01/05/2004 Zoster/Shingles Vaccine Seri es Screening: Adults aged 18+ yrs (or HM Modifiers)([facility] ) (1 of 2) 01/05/2004 Colorectal Cancer Screening 45 -75 Yrs (or HM Modifier) 08/17/2022 Colorectal Cancer: Stool Col oguard Screening every 3 yrs 08/17/2022 08/17/2019 COVID-19 Vaccine Screening: Initial Series and Booster Status ([facility]) (2023- season) 2024 Flu Vaccination: Ages 65+: Y early High Dose Recommended (or Modifier)([facility]) 01/22/2025 RSV Vaccines (1 - 1-dose 75+ series) 2029 Medical Devices Not on file Insurance [facility]
--- OUTSIDE RECORDS SUMMARY | 2025-02-04 10:28 | XMS_ITS | Clinical Summary ---
Author Organization [email or web address] [facility] Address [address] [place] [address] Care Team Providers Care Caustic Room Operator Name Role Phone Unknown, Primary Care Provider [...] 1 - PCV) 2019 Influenza Vaccine (#1) 2025 RSV Adult > 60+ Yrs or Pregn ant (1 - 1-dose 75+ series) 2029 Hepatitis B Vaccines Aged Out No long er eligible based on patient's age to complete this topic RSV Ped < 20 months Aged Out No longe r eligible based on patient's age to complete this topic Care Teams Caustic Room Operator Relationship Specialty Start Date End Date Unknown, PCP - General 06/11/23
--- OUTSIDE RECORDS SUMMARY | 2025-02-04 10:28 | XMS_ITS ---
Author Name [facility] Organization Unknown History of Medication Use Medication Directions Dispensed Refills Start Date End Date Stat us Cequa 0.09 % Solution Administer 1 drop to both eyes 2 times a day. 12/09/2024 active prednisoLONE acetate (PRED FORTE) 1 % ophthalmic suspension INSTILL 1 DROP INTO BOTH EYES THREE TIMES A DAY USE FOR 2 WEEKS THEN STOP. 12/09/2024 active Miebo 1.338 GM/ML Solution INSTILL 1 DROP INTO BOTH EYES 3 TIMES A DAY 12/01/2024 active EPINEPHrine 0.3 mg/0.3 mL IJ auto-injection INJECT 0.3 MG INTRAMUSCULARLY ONCE 11/21/2024 active ipratropium (ATROVENT) 0.03 % nasal spray 11/07/2024 active meloxicam (MOBIC) 15 MG tablet TAKE 0.5-1 TABLET BY MOUTH DAILY,X90 DAYS NEEDED FOR SEVERE PAIN 10/30/2024 active tamsulosin (FLOMAX) 0.4 MG capsule TAKE 2 CAPSULES BY MOUTH DAILY AT BEDTIME,X90 DAYS 10/30/2024 active Admelog SoloStar 100 UNIT/ML prefilled pen injection Please see attached for detailed directions 10/28/2024 active insulin glargine, BASAGLAR KWIKPEN, 100 UNIT/ML prefilled pen injection INJECT 10 UNITS SUBCUTANEOUSLY DAILY AT BEDTIME 10/18/2024 active HYDROmorphone (DILAUDID) 4 MG tablet Take 4 mg by mouth 4 times daily (every 6 hours) as needed. for pain 10/14/2024 active Continuous Glucose Sensor (Dexcom G7 Sensor) [facility] [place]-10: 11.65, Z79. 4 MONITOR BLOOD SUGARS 3X/ DAY BEFORE BREAKFAST, LUNCH, DINNER 09/30/2024 active albuterol (PROVENTIL HFA; VENTOLIN HFA) 108 (90 Base) MCG/ACT inhaler USE 1-2 PUFFS BY MOUTH EVERY 6 HOURS,X30 DAYS NEEDED FOR SHORTNESS OF BREATH OR WHEEZING 09/03/2024 active Repatha 140 MG/ML injection INJECT 140 MG SUBCUTANEOUS INFUSION EVERY 14 DAYS,X90 DAYS 12/16/2023 active aspirin enteric coated 81 MG EC tablet Take 81 mg by mouth. acti ve Farxiga 10 MG tablet Take 10 mg by mouth. acti ve Lifitegrast (Xiidra) 5 % Solution INSTILL 1 DROP INTO BOTH EYES EVERY 12 HOURS active LORazepam (ATIVAN) 0.5 MG tablet TAKE 1 TABLET BY MOUTH 2 TIMES A DAY FOR 30 DAYS NEEDED FOR ANXIETY active losartan (COZAAR) 25 MG tablet active losartan (COZAAR) 50 MG tablet Take 50 mg by mouth. ac tive metFORMIN (GLUCOPHAGE-XR) 500 MG 24 hr tablet active metFORMIN (GLUCOPHAGE) 1000 MG tablet Take 1,000 mg by mouth 2 (two) times a day with meals. active Mounjaro 10 MG/0.5ML pen-injector [id number] MG SUBCUTANEOUS INJECTION EVERY WEEK,X30 DAYS,INSTR:ROTATE INJECTION SITES active Repatha SureClick 140 MG/ML auto-injector DIRECTED EVERY 14 DAYS SUBCUTANEOUS 90 DAYS active rosuvastatin (CRESTOR) 10 MG tablet active tirzepatide (Mounjaro) 2.5 mg/0.5 mL pen-injector INJECT 2.5 MG SUBCUTANEOUSLY ONCE WEEKLY active tiZANidine (ZANAFLEX) 2 MG tablet Take 2 mg by mouth nightly. active Problems Problem Status Onset Date Problem Type Date of Resoluti on Source Non-seasonal allergic rhinitis, unspecified trigger [facility] V[facility] dysfunction active EncounterDiagnosisAct [facility] Allergic conjunctivitis, bilateral active EncounterDiagnosisAct [facility] Encounters Encounter Type Encounter Reason Primary Diagnosis Location Date Ambulatory Allergy Testing Allergy Testing [facility] 12/16/2024 Care Team Organization Name Specialty Phone Email Start Date End Da [facility] 12/16/2024 [place] [place] 12/16/2024 01/14/2025 [facility] 11/27/2024
--- OUTSIDE RECORDS SUMMARY | 2025-02-04 10:28 | XMS_ITS | Clinical Summary ---
Author Organization [facility] Address [address] [place] [address] Phone Care Team Providers Care Bilingual Loan Processor Name Role Phone ManojEj basilio Kishan GAGNON Primary Care Provider Self-Referred, Patient Unavailable Unavailab Isaak Florian MD, BONNIE Unavailable [phone] Kyle Onofre SENIOR ACCOUNTANT CPA Unavailable [phone] Allergies Active Allergy Reactions Criticality Noted Date Comments Atorvastatin Myalgia 01/01/2024 Codeine 11/18/2024 Generally feels unwell, mildly lightheaded. He is uncertain about other opioids Itraconazole Anaphylaxis,Hives,Un know n High 03/29/2023 Lisinopril Cough 01/01/2024 Medications metFORMIN (GLUCOPHAGE) 1000 MG tablet Take 1,000 [...] DAYS NEEDED FOR ANXIETY AND PANIC ATTACKS 11/07/19 24 Active FREESTYLE BHARTI 3 SENSOR Teresa SENSORS DX: DM TYPE 2 E11.9 CHECK SUGARS 11/27/19 23 Active CEQUA 0.09 % suspension 11/19/19 24 Active ketoconazole 2 % cream 1 APPLICATION TOPICALLY 2 TIMES A DAY FOR 2-4 WEEKS AT A TIME. 11/02/19 24 Active XDEMVY 0.25 % Drop INSTILL 1 DROP INTO EACH EYE TWICE A DAY FOR 6 WEEKS 11/11/19 24 Active MIEBO 100 % Drop 11/05/19 24 Active tadalafiL (CIALIS) 5 MG tablet 09/23/19 24 Active triamcinolone acetonide 0.025 % cream PLEASE SEE ATTACHED FOR DETAILED DIRECTIONS 11/01/19 24 Active FARXIGA 10 mg tablet Take 1 tablet by mouth daily. Active REPATHA SYRINGE 140 mg/mL subcutaneous syringe INJECT 140 MG SUBCUTANEOUS INFUSION EVERY 14 DAYS,X90 DAYS 12/16/19 24 Active albuterol 90 mcg/actuation inhaler USE 1-2 PUFFS BY MOUTH EVERY 6 HOURS,X30 DAYS NEEDED FOR SHORTNESS OF BREATH OR WHEEZING 09/04/19 25 Active HYDROcodone-acet aminophen (NORCO) 5-325 mg per tablet 2 TABLET BY MOUTH EVERY 6 HOURS,X7 DAYS, NEEDED FOR PAIN 11/04/19 25 Active BASAGLAR KWIKPEN U-100 INSULIN 100 unit/mL (3 mL) InPn injection pen INJECT 10 UNITS SUBCUTANEOUSLY DAILY AT BEDTIME 10/19/19 25 Active ADMELOG SOLOSTAR U-100 INSULIN 100 unit/mL injection pen PLEASE SEE ATTACHED FOR DETAILED DIRECTIONS 10/29/19 25 Active ipratropium (ATROVENT) 21 mcg (0.03 %) nasal spray 11/08/19 25 Active LORazepam (ATIVAN) 0.5 MG tablet TAKE 1 TABLET BY MOUTH 2 TIMES A DAY FOR 30 DAYS NEEDED FOR ANXIETY 09/07/19 25 Active meloxicam (MOBIC) 15 MG tablet TAKE 0.5-1 TABLET BY MOUTH DAILY,X90 DAYS NEEDED FOR SEVERE PAIN 10/31/19 25 Active BD ULTRA-FINE MICRO PEN NEEDLE 32 gauge x 1/4 Ndle USE DIRECTED WITH HUMALOG BEFORE MEALS 4 TIMES A DAY 10/01/19 25 Active tiZANidine (ZANAFLEX) 2 MG tablet take 1 tablet by mouth 3 times a day for 14 days 11/05/19 25 Active MOUNJARO 10 mg/0.5 mL PnIj subcutaneous pen [id number] MG SUBCUTANEOUS INJECTION EVERY WEEK,X30 DAYS,INSTR:ROTATE INJECTION SITES Active Active Problems Problem Noted Date Diagnosed Date Adjustment disorder with anxious mood 11/18/2024 Dry eye syndrome, bilateral 11/18/2024 Low testosterone level in male 07/18/2024 Skin lesion of face 07/09/2024 Overview (11/18/2024): Advised to see dermatology. 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 Resolved Problems Problem Noted Date Diagnosed Date Resolved Date Abdominal actinomycosis 01/01/2024 05/2 01/2025 Acute sinusitis 01/01/2024 01/01/2024 Benign prostatic hyperplasia without lower urinary tract symptoms 01/01/2024 01/01/2024 BPH with obstruction/lower u rinary tract symptoms 01/01/2024 01/01/2024 Displaced avulsion fracture of left ilium, subsequent encounter for fracture with delayed healing 01/01/2024 01/01/2024 Elevated PSA, less than 10 ng/ml 01/01/2024 01/01/2024 Microscopic hematuria 01/01/20242023 Myopathy 01/01/2024 01/01/2024 Recurrent major depression 01/01/2024 0 11/18/2024 Thoracic vertebral fracture 01/01/2024 01/01/2024 H. pylori infection 11/23/2019 01/01/20 24 Encounters Date Type Department Care Team Description 11/18/2024 12:30 PM EDT - 11/18/2024 11:59 PM EDT Hospital Encounter Department of Radiation Oncology [address] [place] [id number] Kyle Onofre, SENIOR ACCOUNTANT CPA Discharge Disposition: Home or Self Care from Last 3 Months Family History Medical [...] Assigned at Male 03/22/2023 5:43 PM EDT Legal Sex Male 10:33 AM EDT Gender Identity Male 03/22/2023 5:43 PM [...] Care Team (Late st Contact Info) Description 05/10/2025 1:00 PM EST Appointment Department of Radiation Oncology [address] [place] [phone] Kyle Onofre NP [address] [place] [id number] [email or web address] Health Maintenance Due Date Last Done Comments CREATININE LEVEL 1954 HEMOGLOBIN A1C 1954 POTASSIUM LEVEL 1954 DEPRESSION SCREENING 1966 HEPATITIS C SCREENING 01/05/1972 LIPID PANEL 01/05/1972 PNEUMOCOCCAL VACCINES (50+ years) (1 of 2 - PCV) 1973 COLOGUARD 1999 COLONOSCOPY 1999 COLORECTAL CANCER SCREENING 1999 FIT TEST 1999 FOBT 1999 SIGMOIDOSCOPY 1999 VIRTUAL COLONOSCOPY 1999 RSV VACCINE (1 - Risk 60-74 years 1-dose series) 2014 ZOSTER VACCINES (2 of 2) 09/05/2021 07/11/2021 BLOOD PRESSURE 12/14/2023 06/14/2023 DIABETIC EYE EXAM 01/01/2024 COVID-19 VACCINE ( season) 2024 05/24/2022, 10/06/2021, 03/31/2021, Additional history [...] age to complete this topic MENINGOCOCCAL VACCINES (B) Aged Out N o longer eligible based on patient's age to complete this topic Medical Devices Not on file Insurance [employer] [facility] MEDICARE SUPPLEMENT MEDICARE PART A & B [facility] MEDICARE SUPPLEMENT MEDICARE PART A [place] [id number] [facility] EXT[employer]ION MEDICARE SUPPLEMENT MEDICARE PART A & [place] [address] [facility] [employer] MEDICARE SUPPLEMENT MEDICARE PART A & B [facility] MEDICARE SUPPLEMENT MEDICARE PART A & [place] [address] [facility] [employer] MEDICARE SUPPLEMENT MEDICARE PART A [place] [id number] [place] [address] [place] [address] Care Teams Bilingual Loan Processor Relationship Specialty Start Date End Date Ej Aranda MD [address] [facility] [address] [place] [address] PCP - General Internal Medicine 08/13/23 Self-Referred, Patient 08/13/23 Isaak Contreras MD, BONNIE [address] [place] [id number] [email or web address] Radiation Oncology 08/13/23 Kyle Onofre NP [address] [place] [phone] [email or web address] Radiation Oncology 01/01/24 Additional Source Comments The information contained in this document represents components of the legal health record. It is not the complete legal health record.[facility]
--- OUTSIDE RECORDS SUMMARY | 2025-02-04 10:28 | XMS_ITS | Clinical Summary ---
Author Organization [facility] Address [address] [place] [address] Care Team Providers Care Machine Grinder Name Role Phone Ej Aranda MD Primary Care Provider [phone] Medications tamsulosin (FLOMAX) 0.4 MG capsule TAKE 2 CAPSULES BY MOUTH DAILY AT BEDTIME,X90 DAYS 10/31/19 25 Active rosuvastatin (CRESTOR) 10 MG tablet Active prednisoLONE acetate (PRED FORTE) 1 % ophthalmic suspension INSTILL 1 DROP INTO BOTH EYES THREE TIMES A DAY USE FOR 2 WEEKS THEN STOP. 12/10/19 25 Active Miebo 1.338 GM/ML Solution INSTILL 1 DROP INTO BOTH EYES 3 TIMES A DAY 12/02/19 25 Active tiZANidine (ZANAFLEX) 2 MG tablet Take 2 mg by mouth nightly. Active tirzepatide (Mounjaro) 2.5 mg/0.5 mL pen-injector INJECT 2.5 MG SUBCUTANEOUSLY ONCE WEEKLY Active Mounjaro 10 MG/0.5ML pen-injector [id number] MG SUBCUTANEOUS INJECTION EVERY WEEK,X30 DAYS,INSTR:ROTATE INJECTION SITES Active metFORMIN (GLUCOPHAGE) 1000 MG tablet Take 1,000 mg by mouth 2 (two) times a day with meals. Active metFORMIN (GLUCOPHAGE-XR ) 500 MG 24 hr tablet Active meloxicam (MOBIC) 15 MG tablet TAKE 0.5-1 TABLET BY MOUTH DAILY,X90 DAYS NEEDED FOR SEVERE PAIN 10/31/19 25 Active losartan (COZAAR) 50 MG tablet Take 50 mg by mouth. Active losartan (COZAAR) 25 MG tablet Active LORazepam (ATIVAN) 0.5 MG tablet TAKE 1 TABLET BY MOUTH 2 TIMES A DAY FOR 30 DAYS NEEDED FOR ANXIETY Active Lifitegrast (Xiidra) 5 % Solution INSTILL 1 DROP INTO BOTH EYES EVERY 12 HOURS Active ipratropium (ATROVENT) 0.03 % nasal spray 11/08/19 25 Active Insulin Pen Needle 32G X 6 MM [facility] USE DIRECTED WITH HUMALOG BEFORE MEALS 4 TIMES A DAY 10/01/19 25 Active Admelog SoloStar 100 UNIT/ML prefilled pen injection Please see attached for detailed directions 10/29/19 25 Active insulin glargine, BASAGLAR KWIKPEN, 100 UNIT/ML prefilled pen injection INJECT 10 UNITS SUBCUTANEOUSLY DAILY AT BEDTIME 10/19/19 25 Active HYDROmorphone (DILAUDID) 4 MG tablet Take 4 mg by mouth 4 times daily (every 6 hours) as needed. for pain 10/15/19 25 Active Repatha 140 MG/ML injection INJECT 140 MG SUBCUTANEOUS INFUSION EVERY 14 DAYS,X90 DAYS 12/16/19 24 Active Repatha SureClick 140 MG/ML auto-injector DIRECTED EVERY 14 DAYS SUBCUTANEOUS 90 DAYS Active EPINEPHrine 0.3 mg/0.3 mL IJ auto-injection INJECT 0.3 MG INTRAMUSCULARLY ONCE 11/22/19 25 Active Farxiga 10 MG tablet Take 10 mg by mouth. Active aspirin enteric coated 81 MG EC tablet Take 81 mg by mouth. Active Cequa 0.09 % Solution Administer 1 drop to both eyes 2 times a day. 12/10/19 25 Active Continuous Glucose Sensor (Dexcom G7 Sensor) [facility] ICD-10: 11.65, Z79. 4 MONITOR BLOOD SUGARS 3X/ DAY BEFORE BREAKFAST, LUNCH, DINNER 10/06/19 25 Active albuterol (PROVENTIL HFA; VENTOLIN HFA) 108 (90 Base) MCG/ACT inhaler USE 1-2 PUFFS BY MOUTH EVERY 6 HOURS,X30 DAYS NEEDED FOR SHORTNESS OF BREATH OR WHEEZING 09/04/19 25 Active Encounters Date Type Department Care Team Description 12/16/2024 1:00 PM EDT Office Visit [facility] Department of Allergy [place] [address] [place] [address] Maru Steward MD Non-seasonal allergic rhinitis, unspecified trigger (Primary Dx); Allergic conjunctivitis, bilateral; Vocal cord dysfunction from Last 3 Months Social History Tobacco Use Types Packs/Day Years Used Date Smoking Tobacco: Never Assessed Sex and Gender Information Value Date Recorded Sex Assigned at Not on file Legal Sex Male 7:51 PM EST Gender Identity Not on file Sexual Orientation Not on file Last Filed Vital Signs Vital Sign Reading Time Taken Comments Blood Pressure - - Pulse - - Temperature - - Respiratory Rate - - Oxygen Saturation - - Inhaled Oxygen Concentration - - Weight 76.2 kg (168 lb) 12/16/2024 1:41 PM EDT Height 162.6 cm (5' 4 ) 12/16/2024 1:41 PM EDT Body Mass Index 28.84 12/16/2024 1:41 PM EDT Plan of Treatment Upcoming Encounters Date Type Department Care Team (Late st Contact Info) Description 03/10/2025 5:30 PM EDT Office Visit [facility] Department of Allergy [place] [address] [place] [address] Maru Steward MD [address] [place] [address] Health Maintenance Due Date Last Done Comments Hepatitis C Virus Screening 1954 DTaP/Tdap/Td Vaccines (1 - Tdap) 1973 Colonoscopy 1999 Pneumococcal Vaccines 50+ (1 of 1 - PCV) 01/05/2004 Zoster (Shingles) Vaccine (1 of 2) 01/05/2004 RSV Vaccine 60 years and old er and Patients (1 - Risk 60-74 years 1-dose series) 2014 COVID-19 Vaccine ( - 2023-2 5 season) 2024 Influenza Vaccine 01/22/2025 Hepatitis B Vaccines Aged Out No long er eligible based on patient's age to complete this topic Insurance MEDICARE PART A & B [facility] MEDICARE [facility] MEDICARE OUT OF NETWORK Care Teams Machine Grinder Relationship Specialty Start Date End Date Ej Aranda MD [address] [place] [address] PCP - General 12/16/24
== END 2025-02-04 09:47 | disposition home or self-care (01) ==
LOC: CF 09:46
PROVIDERS: Visit Provider Internal Medicine
DX: M25.552 Pain in left hip (principal)
CPT/HCPCS: 20610; J2003; J2795; J3301; Q9967

== ENCOUNTER 2025-02-04 13:34 | Outpatient (AMB) | payer MEDICARE, OTHER, SELFPAY ==
[2025-02-04 13:59] VITALS: BP 98/65; PULSE 86; RESP 16; O2SAT 96
--- NOTE | 2025-02-04 13:59 | A.OFFVIS_ITS ---
Vital Signs 02/04/25 13:59 02/04/25 14:52 BP 98/65 124/74 Blood Pressure Location Lt brachial Lt brachial Position Sitting Sitting Respiration 16 16 Pulse 86 70 Pulse Source Pulse Oximeter Pulse Oximeter Pulse Oximetry (%) 96 96 Oxygen Delivery Method Room Air Room Air Intake Visit Reasons: Hip Injection HPI HPI Hip Injection: Details: Patient is here referred by his orthopedic surgeon Dr. Rogers for consideration of left hip intra-articular and greater trochanteric injections. He reports pain in his left groin with weight-bearing and radiating towards lateral proximal thigh. On exam his left trochanter is exquisitely tender to palpation. [facility] Medical History (Updated 02/04/25 @ 09:41 by Misty Lee LPN) Hip pain Physical Exam Vital Signs: Last Vital Signs Pulse 70 02/04/25 14:52 Resp 16 02/04/25 14:52 BP 124/74 02/04/25 14:52 Pulse Ox 96 02/04/25 14:52 Oxygen Delivery Method Room Air 02/04/25 14:52 Office Procedures AMB Joint Injection/Aspiration Joint Injection/Aspiration Details: Hip Intra-articular Injection, fluoroscopy guided, Left After informed written consent was obtained, the patient was placed in the lateral position. Pre-procedure oxygen saturation, heart rate, and blood pressure were recorded. The skin was prepped with Chloroprep, and draped in a sterile fashion. With the use of fluroscopy the hip joint was identified. With a 25-gauge 1.5 hypodermic needle 0.75% lidocaine was injected subcutaneously over the entry site. A 22-gauge 3.5 spinal needle was then advanced toward the junction of the joint capsule and femoral neck. Once in position, and after negative aspiration, 0.5mL of Omnipaque was injected outlining the joint capsule followed by injection of 20mg Kenalog mixed with 0.5% ropivacaine (3mL total). There was no evidence of paresthesias throughout needle placement. The stylet was replaced and then the needle was withdrawn. The patient tolerated the procedure well and there was no evidence of procedural complications. EBL: <1cc Greater Trochanteric Bursa Injection, fluoroscopy guided, Left With the patient in lateral position and the use of fluroscopy the greater trochanter was identified. A 25g 1.5 inch needle was advanced toward the trochanteric bursa. Once in position, and after negative aspiration, 0.5mL of Omnipaque was injected outlining the bursa followed by injection of 20mg triamcinilone mixed with 0.5% ropivcaine (3mL total). There was no evidence of paresthesias throughout needle placement. The stylet was replaced and then the needle was withdrawn. The patient tolerated the procedure well and there was no evidence of procedural complications. The patient was observed in the procedure room for 20 minutes, vitals were stable, and discharged in stable condition. Primary Site: other Coding - Large joint (hip joint and GTB) Procedure code (CPT) selection complete Assessment & Plan Assessment & Plan (1) Hip pain: Code(s): M25.559 - Pain in unspecified hip Category: Medical Plan Patient is status post left hip intra-articular and greater trochanteric bursa injections under fluoroscopy. Patient tolerated procedure well and was discharged home in stable condition with discharge instructions. All questions were answered. We will follow-up via telephone or in clinic to assess response to therapy. A follow-up appointment was made during today's visit. Orders: Orders FL guidance in treatment room Today M25.559 - Pain in unspecified hip AMB Joint Injection/Aspiration Today M25.559 - Pain in unspecified hip Coding Level of Care Code Procedure Only Diagnoses Hip pain M25.559 CPT Codes Coding - Large joint: 09492 - Large joint ([id number])
--- OUTSIDE RECORDS SUMMARY | 2025-02-04 14:26 | XMS_ITS | Clinical Summary ---
Author Organization [facility] Address [address] [facility] [address] [place] [address] Care Team Providers Care Managed Services Consultant Name Role Phone Shelley Lo OD Unavailable Ej Aranda MD Primary Care Provider [phone] Social History Tobacco Use Types Packs/Day Years Used Date Smoking Tobacco: Never Assessed Sex and Gender Information Value Date Recorded Sex Assigned at Not on file Legal Sex Male 3:55 PM EST Gender Identity Not on file Sexual Orientation Not on file Plan of Treatment Health Maintenance Due Date Last Done Comments CT Colonography 1954 Colonoscopy 1954 Diabetes: Hemoglobin A1C 1954 FIT 1954 FOBT 1954 Lipid Panel 1954 Sigmoidoscopy 1954 Diabetes: Foot Exam 01/05/1964 Diabetes: Retinopathy Screening 01/05/1964 Hepatitis C Screening 01/05/1972 Diabetes: Urine Protein Screening 1973 Pneumococcal Vaccine: 50+ Years (1 of 1 - PCV) 01/05/2004 Zoster Vaccines (2 of 2) 09/05/2021 07/11/2021 DTaP/Tdap/Td Vaccines (1 - Tdap) 10/07/2021 10/06/2021 Colorectal Cancer Screening 08/17/2022 FIT-DNA 08/17/2022 08/17/2019, 08/17/2019 COVID-19 Vaccine ( - season) 2024 05/24/2022, 10/06/2021, 03/31/2021, Additional history exists Depression Screening 06/24/2024 Influenza Vaccine (#1) 2025 3, 05/08/2022, 05/25/2021, Additional history exists Meningococcal Vaccine Aged Out 05/20/2017 No andrew kristina eligible based on patient's age to complete this topic HIB Vaccines Aged Out No longer eligi ble based on patient's age to complete this topic HPV Vaccines Aged Out No longer eligi ble based on patient's age to complete this topic Hepatitis A Vaccines Aged Out No long er eligible based on patient's age to complete this topic Hepatitis B Vaccines Aged Out No long er eligible based on patient's age to complete this topic IPV Vaccines Aged Out No longer eligi ble based on patient's age to complete this topic Meningococcal B Vaccine Aged Out No l onger eligible based on patient's age to complete this topic Rotavirus Vaccines Aged Out No longer eligible based on patient's age to complete this topic Insurance MEDICARE PART A AND B [facility] MEDICARE SUPPLEMENT Care Teams Managed Services Consultant Relationship Specialty Start Date End Date Ej Aranda MD [address] [place] [address] PCP - General County Demonstrator 05/11/24 Shelley Lo OD [address] [place] [address] 05/11/24
[2025-02-04 14:52] VITALS: BP 124/74; PULSE 70; RESP 16; O2SAT 96
== END 2025-02-04 14:47 | disposition home or self-care (01) ==
LOC: HO.PMCPRC 13:34
PROVIDERS: Visit Provider Internal Medicine
DX: M25.552 Pain in left hip (principal)
CPT/HCPCS: 20610; 77002

== ENCOUNTER 2025-04-15 06:12 | Outpatient (REF) | payer MEDICARE, OTHER, SELFPAY ==
--- OUTSIDE RECORDS SUMMARY | 2025-04-15 06:16 | XMS_ITS | Clinical Summary ---
Author Organization [facility] Address [address] [place] [address] Care Team Providers Care Parts Driver Name Role Phone Ej Aranda MD Primary Care Provider [phone] Allergies No known active allergies Medications tamsulosin (FLOMAX) 0.4 MG capsule TAKE [...] ONCE WEEKLY Active Mounjaro 10 MG/0.5ML pen-injector [id number] MG SUBCUTANEOUS INJECTION EVERY WEEK,X30 DAYS,INSTR:ROTATE INJECTION SITES Active metFORMIN (GLUCOPHAGE) 1000 MG tablet Take 1,000 mg by mouth 2 (two) times a day with meals. Active metFORMIN (GLUCOPHAGE-XR) 500 MG 24 hr tablet Active meloxicam [...] Insulin Pen Needle 32G X 6 MM [facility] USE DIRECTED WITH HUMALOG BEFORE MEALS 4 [...] Active Continuous Glucose Sensor (Dexcom G7 Sensor) [facility] ICD-10: 11.65, Z79. 4 MONITOR BLOOD SUGARS 3X/ DAY BEFORE BREAKFAST, LUNCH, DINNER 10/06/19 25 Active albuterol (PROVENTIL HFA; VENTOLIN HFA) 108 (90 Base) MCG/ACT inhaler USE 1-2 PUFFS BY MOUTH EVERY 6 HOURS,X30 DAYS NEEDED FOR SHORTNESS OF BREATH OR WHEEZING 09/04/19 25 Active fluticasone (FloNASE) 50 mcg/spray nasal spray USE 2 SPRAYS NARES, BOTH 2 TIMES A DAY,X30 DAYS NEEDED NASAL CONGESTION AND POST NASAL DRIPPING 12/22/19 25 Active sertraline (ZOLOFT) 50 MG tablet TAKE 1/2 TABLET BY MOUTH DAILY FOR 2 WEEKS THEN TAKE 1 TAB DAILY Active sildenafil (VIAGRA) 100 MG tablet Take 100 mg by mouth Once before discharge. Active ipratropium (ATROVENT) 0.06 % nasal sprayIndication s:Vasomotor rhinitis 1-2 sprays per nostril up to 1-4 times as needed (head tilted back for postnasal drip) 15 mL 3 03/10/20 25 Active famotidine (PEPCID) 40 MG tabletIndicatio ns:Cough, unspecified type Take 1 tablet daily 30 tablet 3 03/10/20 25 Active Encounters Date Type Department Care Team Description 03/10/2025 5:30 PM EDT Office Visit [facility] Department of Allergy [address] [place] [id number] Maru Steward MD Seasonal allergic rhinitis due to pollen (Primary Dx); Allergic conjunctivitis, bilateral; Dry eyes; Vasomotor rhinitis; Vocal cord dysfunction; Cough, unspecified type from Last 3 Months Social History Tobacco [...] - - Weight 76.2 kg (168 lb) 03/10/2025 5:32 PM EDT Height 162.6 cm (5' 4 ) 03/10/2025 5:32 PM EDT Body Mass Index 28.84 03/10/2025 5:32 PM EDT Plan of Treatment Health Maintenance Due Date Last Done Comments Advance Care Planning 1954 Hepatitis C Virus Screening 1954 DTaP/Tdap/Td Vaccines (1 - Tdap) 1973 Colonoscopy 1999 Pneumococcal Vaccines 50+ (1 of 1 - PCV) 01/05/2004 RSV Vaccine 50 years and older and Patients (1 - Risk 50-74 years 1-dose series) 01/05/2004 Zoster (Shingles) Vaccine (1 of 2) 01/05/2004 Influenza Vaccine 01/22/2025 05/10/2023, , 05/25/2021 COVID-19 Vaccine (2024- season) 2025 10/06/2021, 03/31/2021, 07/11/2020, Additional history exists Hepatitis B Vaccines Aged Out No long er eligible based on patient's age to complete this topic Insurance MEDICARE PART A & B [facility] [place] Care Teams Parts Driver Relationship Specialty Start Date End Date Ej Aranda MD [address] [place] [address] PCP - General 12/16/24
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
--- OUTSIDE RECORDS SUMMARY | 2025-04-15 06:16 | XMS_ITS | Clinical Summary ---
Author Organization [facility] Address [address] [place] [address] Phone Care Team Providers Care Supervisor Pig Machine Name Role Phone ManojEj basilio Kishan GAGNON Primary Care Provider Self-Referred, Patient Unavailable Unavailab Isaak Florian MD, BONNIE Unavailable [phone] Kyle Onofre TUNNELLER Unavailable [phone] Allergies Active Allergy Reactions Criticality Noted Date [...] MOUNJARO 10 mg/0.5 mL PnIj subcutaneous pen [id number] MG SUBCUTANEOUS INJECTION EVERY WEEK,X30 DAYS,INSTR:ROTATE INJECTION [...] 01/01/2024 01/01/2024 H. pylori infection 11/23/2019 01/01/20 Family History Medical History Relation Comments Prostate [...] PM EST Appointment Department of Radiation Oncology [address] [place] [address] Kyle Onofre, TUNNELLER [address] [place] [address] [email or web address] Due Date Last Done Comments CREATININE LEVEL 1954 HEMOGLOBIN A1C 1954 POTASSIUM LEVEL 1954 DEPRESSION SCREENING 1966 HEPATITIS C SCREENING 01/05/1972 LIPID PANEL 01/05/1972 PNEUMOCOCCAL VACCINES (50+ years) (1 of 2 - PCV) 1973 COLOGUARD 1999 COLONOSCOPY 1999 COLORECTAL CANCER SCREENING 1999 FIT TEST 1999 FOBT 1999 SIGMOIDOSCOPY 1999 VIRTUAL COLONOSCOPY 1999 RSV VACCINE (1 - Risk 50-74 years 1-dose series) 01/05/2004 ZOSTER VACCINES (2 of 2) 09/05/2021 07/11/2021 BLOOD PRESSURE 12/14/2023 06/14/2023 DIABETIC EYE EXAM 01/01/2024 INFLUENZA VACCINE (#1) 2025 , 05/08/2022, 05/25/2021 COVID-19 VACCINE ( - 2024- season) 2025 05/24/2022, 10/06/2021, 03/31/2021, Additional history exists Adult [...] topic Medical Devices Not on file Insurance [facility] MEDICARE SUPPLEMENT MEDICARE PART [place] [id number] [facility] MEDICARE SUPPLEMENT [facility] & [facility] [id number] MEDICARE SUPPLEMENT MEDICARE PART A & B Waldemar [place] [address] [facility] MEDICARE SUPPLEMENT MEDICARE PART A & B Member Subscriber Plan / Payer (Ef fective 2023-Present) Name:Kamron Haley Member ID:[id number] Relation to Subscriber:Self Name:Kamron Haley Subscriber ID:[id number] Payer ID:[id number] Group ID:Not on file Type:Medicare Address: [facility] [employer] [address] [place] [address] [facility] MEDICARE SUPPLEMENT MEDICARE PART A & B [facility] MEDICARE SUPPLEMENT MEDICARE PART [place] [address] [place] [address] [place] [address] Care Teams Supervisor Pig Machine Relationship Specialty Start Date End Date Ej Aranda MD [address] [facility] [address] [place] [address] PCP - General Internal Medicine 08/13/23 Self-Referred, Patient 08/13/23 Isaak Contreras MD, BONNIE [address] [place] [address] [email or web address] Radiation Oncology 08/13/23 Kyle Onofre NP [address] [place] [address] [email or web address] Nurse Practitioner Radiation Oncology 01/01/24 Additional Source Comments The information contained in this document represents components of the legal health record. It is not the complete legal health record.[facility]
--- OUTSIDE RECORDS SUMMARY | 2025-04-15 06:16 | XMS_ITS | Clinical Summary ---
Author Organization [facility] Address [address] [place] [address] Care Team Providers Care Stage Electrician Name Role Phone Unknown, Primary Care Provider [...] age to complete this topic Care Teams Stage Electrician Relationship Specialty Start Date End Date Unknown, PCP - General 06/11/23
--- OUTSIDE RECORDS SUMMARY | 2025-04-15 06:16 | XMS_ITS ---
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 Past Treatment and Therapy Plans No past plan information found. 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
--- OUTSIDE RECORDS SUMMARY | 2025-04-15 06:16 | XMS_ITS | Encounter Summary ---
Author Organization [facility] Address [address] [place] [address] Phone Care Team Providers Care Metal Lather Name Role Phone ManojTavonsue Holley MD Primary Care Provider [phone] Self-Referred, Patient Unavailable Unavailab Isaak Florian MD, BONNIE Unavailable [phone] Kyle Onofre SEISMOMETER OPERATOR Unavailable [phone] Encounter Details Date Type Department Care Team (Late st Contact Info) Description 01/01/2024 Documentation Department of Radiation Oncology [address] [address] Heidi Ken, RN [address] [place] [address] [email or web address] Social History Tobacco Use Types Packs/Day [...] PM EST Appointment Department of Radiation Oncology [address] [place] [address] Kyle Onofre, SEISMOMETER OPERATOR [address] [place] [phone] [email or web address] documented as of this encounter Visit Diagnoses Not on filedocumented in this encounter Care Teams Metal Lather Relationship Specialty Start Date End Date Ej Aranda MD [address] [facility] [address] [place] [address] PCP - General Internal Medicine 08/13/23 Self-Referred, Patient 08/13/23 Isaak Contreras MD, BONNIE [address] [place] [address] [email or web address] Radiation Oncology 08/13/23 Kyle Onofre, SEISMOMETER OPERATOR [address] [place] [address] [email or web address] Nurse Practitioner Radiation Oncology 01/01/24 documented as of this encounter Additional Source Comments The information contained in this document represents components of the legal health record. It is not the complete legal health record.[facility]
--- OUTSIDE RECORDS SUMMARY | 2025-04-15 06:16 | XMS_ITS | Clinical Summary ---
Author Organization [facility] Address [address] [facility] [address] [place] [address] Care Team Providers Care Electrician Technician Name Role Phone Shelley Lo OD Unavailable Ej Aranda MD Primary Care Provider [phone] Social History Tobacco Use Types Packs/Day Years [...] 1954 Lipid Panel 1954 Sigmoidoscopy 1954 Diabetes: Retinopathy Screening 1954 Diabetes: Urine Protein Screening 1954 Diabetes: Foot Exam 01/05/1964 Hepatitis C Screening 01/05/1972 Pneumococcal Vaccine: 50+ Years (1 of 1 - PCV) 01/05/2004 Zoster Vaccines (2 of 2) 09/05/2021 07/11/2021 DTaP/Tdap/Td Vaccines (1 - Tdap) 10/07/2021 10/06/2021 Colorectal Cancer Screening 08/17/2022 FIT-DNA 08/17/2022 08/17/2019, 08/17/2019 Depression Screening 06/24/2024 COVID-19 Vaccine ( season) 2025 05/24/2022, 10/06/2021, 03/31/2021, Additional history exists Influenza Vaccine (#1) 2025 3, 05/08/2022, 05/25/2021, [...] topic Insurance MEDICARE PART A AND B [facility] MEDICARE SUPPLEMENT Care Teams Electrician Technician Relationship Specialty Start Date End Date Ej Aranda MD [address] [place] [address] PCP - General Manager Academic 05/11/24 Shelley Lo OD [address] [place] [address] 05/11/24
--- OUTSIDE RECORDS SUMMARY | 2025-04-15 06:16 | XMS_ITS | Encounter Summary ---
Author Organization [facility] Address [address] [place] [address] Phone Care Team Providers Care Learning Engineer Name Role Phone ManojTavonsue Holley MD Primary Care Provider Self-Referred, Patient Unavailable Unavailab Isaak Florian MD, BONNIE Unavailable [phone] Kyle Onofre HUMAN RESOURCE MANAGER Unavailable [phone] Encounter Details Date Type Department Care Team (Late st Contact Info) Description 01/29/2024 Documentation Department of Radiation Oncology [address] [address] Heidi Ken, RN [address] [place] [address] [email or web address] Social History Tobacco Use Types Packs/Day [...] EST Appointment Department of Radiation Oncology [address] [place] [address] Kyle Onofre, HUMAN RESOURCE MANAGER [address] [place] [address] [email or web address] documented as of this encounter Visit Diagnoses Not on filedocumented in this encounter Care Teams Learning Engineer Relationship Specialty Start Date End Date Ej Aranda MD [address] [facility] [address] [place] [address] PCP - General Internal Medicine 08/13/23 Self-Referred, Patient 08/13/23 Isaak Contreras MD, BONNIE [address] [place] [address] [email or web address] Radiation Oncology 08/13/23 Kyle Onofre, HUMAN RESOURCE MANAGER [address] [place] [phone] [email or web address] Nurse Practitioner Radiation Oncology 01/01/24 documented as of this encounter Additional Source Comments The information contained in this document represents components of the legal health record. It is not the complete legal health record.[facility]
--- OUTSIDE RECORDS SUMMARY | 2025-04-15 06:16 | XMS_ITS | Encounter Summary ---
Author Organization [facility] Address [address] [place] [address] Phone Care Team Providers Care Actuarial Intern Name Role Phone ManojTavonsue Holley MD Primary Care Provider Self-Referred, Patient Unavailable Unavailab Isaak Florian MD, BONNIE Unavailable [phone] Kyle Onofre SALES ASSISTANT ENTERTAINMENT AND MEDIA Unavailable [phone] Encounter Details Date Type Department Care Team (Late st Contact Info) Description 10/17/2023 Procedure Pass [facility] Periop [address] [place] [address] Social History Tobacco Use Types Packs/Day Years [...] Upcoming Encounters Date Type Department Care Team ([facility] st Contact Info) Description 05/10/2025 1:00 PM EST Appointment Department of Radiation Oncology [address] [place] [address] Kyle Onofre NP [address] [place] [address] [email or web address] documented as of this encounter Visit Diagnoses Not on filedocumented in this encounter Care Teams Actuarial Intern Relationship Specialty Start Date End Date Ej Aranda MD [facility] [address] [place] [address] PCP - General Internal Medicine 08/13/23 Self-Referred, Patient 08/13/23 Isaak Contreras MD, BONNIE [address] [place] [address] [email or web address] Radiation Oncology 08/13/23 Kyle Onofre, GAYLE [address] [place] [address] [email or web address] Nurse Practitioner Radiation Oncology 01/01/24 documented as of this encounter Additional Source Comments The information contained in this document represents components of the legal health record. It is not the complete legal health record.[facility]
--- OUTSIDE RECORDS SUMMARY | 2025-04-15 06:16 | XMS_ITS | Clinical Summary ---
Author Organization [facility] Address [address] [facility] [address] Care Team Providers Care Chief Inspector Name Role Phone Unavailable Primary Care Provider [...] Adults 18 yrs or above (or HM Modifier)([facility]) 01/05/1972 Hepatitis C Virus Infection in Adolescents and Adults: Screening (or Modifier) ([facility]) 01/05/1972 [facility] Screening Reminder: Martha stock for all adults ([facility]) 01/05/1972 Tobacco Smoking Cessation: i n Adults excluding Women: Behavioral and Pharmacotherapy Interventions ([facility]) 01/05/1972 DTaP/Tdap/Td Vaccines ([facility]) (1 - Tdap) 1973 Colorectal Cancer: FLEXIBLE SIGMOIDOSCOPY Screening every 5 yrs 1999 Colorectal Cancer: Fecal Imm unochemical Test (FIT) Annually [facility] 1999 Colorectal Cancer: High-sens itivity gFOBT Screening Annually [facility] 1999 Colorectal Cancer:CT Colonog madelin Screening every 5 yrs 1999 Pneumococcal Vaccination Scr eening: Patients 50+ yrs of age ([facility]) (1 of 1 - PCV) 01/05/2004 Zoster/Shingles Vaccine Seri es Screening: Adults aged 18+ yrs (or HM Modifiers)([facility] ) (1 of 2) 01/05/2004 Colorectal Cancer Screening 45 -75 Yrs (or HM Modifier) 08/17/2022 Colorectal Cancer: Stool Col oguard Screening every 3 yrs 08/17/2022 08/17/2019 Flu Vaccination: Ages 65+: Y early High Dose Recommended (or Modifier)([facility]) 01/22/2025 COVID-19 Vaccine Screening: Initial Series and Booster Status ([facility]) ( - 2023- season) 2025 RSV Vaccines (1 - 1-dose 75+ series) 2029 Medical Devices Not on file Insurance [facility]
== END 2025-04-15 06:13 | disposition home or self-care (01) ==
LOC: CF 06:12
PROVIDERS: Visit Provider Internal Medicine
DX: M25.552 Pain in left hip (principal)
CPT/HCPCS: 20611; J2795; J3301

== ENCOUNTER 2025-04-15 09:41 | Outpatient (AMB) | payer MEDICARE, OTHER, SELFPAY ==
[2025-04-15 09:51] VITALS: BP 112/68; PULSE 71; RESP 16; O2SAT 97
--- NOTE | 2025-04-15 09:51 | MHC.OFFVIS ---
Vital Signs 04/15/25 09:51 BP 112/68 Blood Pressure Location Lt brachial Position Sitting Respiration 16 Pulse 71 Pulse Source Pulse Oximeter Pulse Oximetry (%) 97 Oxygen Delivery Method Room Air Intake Visit Reasons: left GTB inj/ US Wastewater Treatment Plant Attendant Required: No Allergies itraconazole (From Sporanox) Allergy (Unknown, Verified 04/15/25 09:51) Unknown Medication List - Last Reconciled 04/15/25 by Misty Lee LPN albuterol sulfate 90 mcg/actuation 1 - 2 puffs inhalation Q6H PRN aspirin 81 mg PO DAILY cyclosporine 0.09% (Cequa) 1 drp ophthalmic (eye) BID dapagliflozin propanediol (Farxiga) 10 mg PO DAILY epinephrine 0.3 mg IM ONCE PRN evolocumab (Repatha SureClick) mg subcut fluticasone propionate 50 mcg/actuation 2 sprays intranasal BID PRN insulin glargine (Basaglar KwikPen U-100 Insulin) 10 units subcut BEDTIME insulin lispro (Admelog SoloStar U-100 Insulin lispro) 5 units subcut TID losartan 50 mg PO DAILY metformin 1,000 mg PO BID nitroglycerin 0.4 mg sublingual ONCE PRN sodium,potassium,mag sulfates 17.5-3.13-1.6 gram (Suprep Bowel Prep Kit) DILUTE each bottle with 16oz of water; drink first bottle 4pm evening before procedure AND second bottle at 10pm; follow each bottle with at least 32 oz.of water within 1 hour after each bottle. tamsulosin 0.8 mg PO BEDTIME tirzepatide (Mounjaro) 10 mg subcut QWEEK tizanidine 2 mg PO TID HPI HPI left GTB inj/ US: Details: Patient presents for scheduled procedure. Denies any recent cough, cold, infection, fever or other significant changes in medical history since last office visit. [facility] Medical History (Updated 04/15/25 @ 10:22 by Luis Enrique Cantu MD) Depression Pituitary macroadenoma Left lower lobe pulmonary nodule Hypercholesteremia Diabetes DDD (degenerative disc disease), lumbar CAD (coronary artery disease) Prostate cancer Baastrup's syndrome Lumbar spondylosis Cervical radicular pain Hip pain Surgical History (Updated 02/16/25 @ 09:55 by Noemy Iabnez RN) History of back surgery Hx of cardiac catheterization Hx of bilateral cataract extraction Hx of shoulder surgery Social History (Updated 02/16/25 @ 10:15 by Noemy Ibanez RN) Patient Tobacco Use Status: Former Tobacco user Tobacco use type: Cigarette Physical Exam Vital Signs: Last Vital Signs Pulse 71 04/15/25 09:51 Resp 16 04/15/25 09:51 BP 112/68 04/15/25 09:51 Pulse Ox 97 04/15/25 09:51 Oxygen Delivery Method Room Air 04/15/25 09:51 Office Procedures AMB Joint Injection/Aspiration Joint Injection/Aspiration Details: Greater Trochanteric Bursa Injection, Left, Ultrasound Guided Informed consent was obtained and time out was performed. The site was prepped with Chloraprep. With the patient in lateral position and the use of ultrasound the greater trochanter was identified. A 21-gauge 3.5 echostim needle was then advanced toward the trochanteric bursa using an inplane technique. Once in position, and after negative aspiration, 40mg triamcinilone mixed with 0.5% ropivcaine (3mL total) was injected. There was no evidence of paresthesias throughout needle placement. The needle was withdrawn. An image of the US guided needle placement was saved to the record. The patient tolerated the procedure well and there was no evidence of procedural complications. The patient was observed in the procedure room for 20 minutes, vitals were stable, and discharged in stable condition. Coding 62973 - Glenohumeral with ultrasound guidance Procedure code (CPT) selection complete Assessment & Plan Assessment & Plan (1) Greater trochanteric pain syndrome: Code(s): M25.559 - Pain in unspecified hip Category: Medical Plan Patient is status post left GT injection under US. Patient tolerated procedure well and was discharged home in stable condition with discharge instructions. All questions were answered. We will follow-up via telephone or in clinic to assess response to therapy. A follow-up appointment was made during today's visit. Orders: Orders AMB Joint Injection/Aspiration Today M25.559 - Pain in unspecified hip Coding Level of Care Code Procedure Only Diagnoses Greater trochanteric pain syndrome M25.559 CPT Codes Coding - Joint 8: 17797 - Glenohumeral with ultrasound guidance ([id number])
== END 2025-04-15 10:04 | disposition home or self-care (01) ==
LOC: HO.PMCPRC 09:41
PROVIDERS: Visit Provider Internal Medicine
DX: M25.552 Pain in left hip (principal)
CPT/HCPCS: 20611